=== PATIENT | male | born 1960 | race Native Hawaiian/Other Pacific Islander ===

== ENCOUNTER 2018-09-13 15:37 | Inpatient (IN) | payer OTHER ==
--- NOTE | 2018-09-13 16:26 | Emergency Department Report ---
ED Neuro Deficit HPI - General Chief Complaint: Dizziness Stated Complaint: FACIAL TINGLING Time Seen by Provider: 09/13/18 16:12 Source: patient, EMS Mode of arrival: Stretcher Limitations: No Limitations - History of Present Illness Initial Comments: 58-year-old male with no significant past medical history presents also complaining of left side paresthesia since about 10:00 AM. Symptoms are intermittent symptoms and include the left face, left arm, and left leg. Patient thinks he might have been on the left side but denies any current weakness. He also denies blurred vision, dysarthria, headache, chest pain, shortness of breath. Patient denies smoking, drug use, and drinks alcohol socially. He denies having any medical problems has not seen a physician in several years - Related Data Home Medications: Home Medications Medication Instructions Recorded Confirmed Last Taken No Known Home Medications [No 09/13/18 09/13/18 Unknown Reported Home Medications] Allergies/Adverse Reactions: Allergies Allergy/AdvReac Type Severity Reaction Status Date / Time No Known Allergies Allergy Unverified 09/13/18 16:19 ED Review of Systems ROS: Stated complaint: FACIAL TINGLING Other details as noted in HPI Comment: All other systems reviewed and negative ED Past Medical Hx - Past Medical History Previous Medical History?: No - Surgical History Past Surgical History?: No - Social History Smoking Status: Never Smoker Substance Use Type: Alcohol - Medications Home Medications: Home Medications Medication Instructions Recorded Confirmed Last Taken Type No Known Home Medications [No 09/13/18 09/13/18 Unknown History Reported Home Medications] ED Neuro Physical Exam - General Limitations: No Limitations Suspected Stroke: Yes - NIHSS Assessment Interval: Baseline 1a. Level of Consciousness: alert/keenly responsive 1b. LOC Questions: answers both correctly 1c. LOC Commands: performs tasks correctly 2. Best Gaze: normal 3. Visual: no visual loss 4. Facial Palsy: minor paralysis (left face) 5b. Motor Arm Right: no drift 5a. Motor Arm Left: no drift 6a. Motor Leg Left: no drift 6b. Motor Leg Right: no drift 7. Limb Ataxia: absent 8. Sensory: normal 9. Best Language: no aphasia 10. Dysarthria: normal 11. Extinction/Inattention: no abnormality Total Score: 1 Stroke Severity: Minor Stroke - Other Other exam information: General: No limitations, patient is alert in no acute distress Head exam: Atraumatic, normocephalic Eyes exam: Normal appearance, pupils equal reactive to light, extraocular movements intact ENT: Moist mucous membrane Neck exam: Normal inspection, full range of motion, no meningismus nontender Respiratory exam: Clear to auscultation bilateral, no wheezes, rales, crackles Cardiovascular: Normal rate and rhythm, normal heart sounds Abdomen: Soft, nondistended, and nontender, with normal bowel sounds, no rebound, or guarding Extremity: Full range of motion normal inspection no deformity Back: Normal Inspection, full range of motion, no tenderness Neurologic: Alert, oriented x3, cranial nerves intact, no motor or sensory d eficit Psychiatric: normal affect, normal mood Skin: Warm, dry, intact ED Course Vital Signs 09/13/18 09/13/18 09/13/18 15:41 15:46 16:00 Temperature Pulse Rate 103 H 98 H Respiratory 18 12 Rate Blood Pressure 149/84 140/79 Blood Pressure [Right] O2 Sat by Pulse 97 99 97 Oximetry 09/13/18 09/13/18 09/13/18 16:12 16:16 16:30 Temperature 98.3 F Pulse Rate 101 H 93 H Respiratory 16 17 Rate Blood Pressure 149/84 140/79 140/79 Blood Pressure [Right] O2 Sat by Pulse 98 97 96 Oximetry 09/13/18 09/13/18 16:41 20:11 Temperature 98.2 F 98 F Pulse Rate 93 H 84 Respiratory 18 16 Rate Blood Pressure Blood Pressure 140/79 149/88 [Right] O2 Sat by Pulse 100 100 Oximetry - Reevaluation(s) Reevaluation #1: 09/13/18 18:40 symptoms improved at this time - Consultations Consultation #1: 09/13/18 18:40 case d/w Neuro Dr Laar, rec admission for stroke workup - Lab Data Result diagrams: 09/13/18 16:27 09/13/18 16:27 Lab Results 09/13/18 09/13/18 09/13/18 Range/Units 15:56 16:27 16:27 WBC 5.0 (4.5-11.0) K/mm3 RBC 4.60 (3.65-5.03) M/mm3 Hgb 14.7 (11.8-15.2) gm/dl Hct 43.0 (35.5-45.6) % MCV 93 (84-94) fl MCH 32 (28-32) pg MCHC 34 (32-34) % RDW 13.7 (13.2-15.2) % Plt Count 152 (140-440) K/mm3 Lymph % (Auto) 42.8 H (13.4-35.0) % [place] % (Auto) 8.6 H (0.0-7.3) % Eos % (Auto) 2.2 (0.0-4.3) % Baso % (Auto) 0.7 (0.0-1.8) % Lymph # 2.1 (1.2-5.4) K/mm3 [place] # 0.4 (0.0-0.8) K/mm3 Eos # 0.1 (0.0-0.4) K/mm3 Baso # 0.0 (0.0-0.1) K/mm3 Seg Neutrophils % 45.7 (40.0-70.0) % Seg Neutrophils # 2.3 (1.8-7.7) K/mm3 PT 14.2 (12.2-14.9) Sec. INR 1.04 (0.87-1.13) APTT < 20.0 L (24.2-36.6) Sec. Thrombin Time 16.7 (15.1-19.6) Sec. Sodium (137-145) mmol/L Potassium (3.6-5.0) mmol/L Chloride (98-107) mmol/L Carbon Dioxide (22-30) mmol/L Anion Gap mmol/L BUN (9-20) mg/dL Creatinine (0.8-1.5) mg/dL Estimated GFR ml/min BUN/Creatinine Ratio % Glucose (75-100) mg/dL POC Glucose 135 H (70-105) Calcium (8.4-10.2) mg/dL Magnesium (1.7-2.3) mg/dL Total Creatine Kinase (55-170) units/L CK-MB (CK-2) (0.0-4.0) ng/mL CK-MB (CK-2) Rel Index (0-4) Troponin T (0.00-0.029) ng/mL 09/13/18 Range/Units 16:27 WBC (4.5-11.0) K/mm3 RBC (3.65-5.03) M/mm3 Hgb (11.8-15.2) gm/dl Hct (35.5-45.6) % MCV (84-94) fl MCH (28-32) pg MCHC (32-34) % RDW (13.2-15.2) % Plt Count (140-440) K/mm3 Lymph % (Auto) (13.4-35.0) % [place] % (Auto) (0.0-7.3) % Eos % (Auto) (0.0-4.3) % Baso % (Auto) (0.0-1.8) % Lymph # (1.2-5.4) K/mm3 [place] # (0.0-0.8) K/mm3 Eos # (0.0-0.4) K/mm3 Baso # (0.0-0.1) K/mm3 Seg Neutrophils % (40.0-70.0) % Seg Neutrophils # (1.8-7.7) K/mm3 PT (12.2-14.9) Sec. INR (0.87-1.13) APTT (24.2-36.6) Sec. Thrombin Time (15.1-19.6) Sec. Sodium 138 (137-145) mmol/L Potassium 3.8 (3.6-5.0) mmol/L Chloride 100.7 (98-107) mmol/L Carbon Dioxide 25 (22-30) mmol/L Anion Gap 16 mmol/L BUN 12 (9-20) mg/dL Creatinine 1.0 (0.8-1.5) mg/dL Estimated GFR > 60 ml/min BUN/Creatinine Ratio 12 % Glucose 122 H (75-100) mg/dL POC Glucose (70-105) Calcium 9.1 (8.4-10.2) mg/dL Magnesium 2.10 (1.7-2.3) mg/dL Total Creatine Kinase 292 H (55-170) units/L CK-MB (CK-2) 1.9 (0.0-4.0) ng/mL CK-MB (CK-2) Rel Index 0.6 (0-4) Troponin T < 0.010 (0.00-0.029) ng/mL - EKG Data -: EKG Interpreted by Dc EKG shows normal: sinus rhythm, axis (qrs -36), QRS complexes (qrsd 81), ST-T waves (no semi/t inv, inf q waves possibleonld infarct) Rate: normal (86) - Radiology Data Radiology results: report reviewed PROCEDURE: CT head without contrast. TECHNIQUE: Computerized tomography of the head was performed without contrast material. CT DOSE LENGTH PRODUCT: 920.48 mGycm HISTORY: Stroke symptoms, left side paresthesias . COMPARISONS: None. FINDINGS: The ventricles are normal in size. The fletcher matter and white matter appear normal. There are no mass lesions. There is no intracranial hemorrhage. An MRI scan with diffusion weighted imaging is the best means of detecting an early stroke. The calvarium appears intact. The mastoid air cells and visualized paranasal sinuses are well aerated. IMPRESSION: Normal study. - Medical Decision Making intermittent left paresthesias ct head unremarkable asa provided Neuro consulted, admission rec for [facility] hospitalist Dr Haynes informed. - Differential Diagnosis TIA, CVA, paresthesias, electrolyte abnormality, brain lesion - Thrombolytic Inclusion/Exclusion Thrombolytic Exclusion Criteria: Symptom Onset > 3 Hours Critical Care Time: No Critical care attestation.: If time is entered above; I have spent that time in minutes in the direct care of this critically ill patient, excluding procedure time. ED Disposition Clinical Impression: Left leg paresthesias, Arm paresthesia, left, Facial paresthesia Disposition: OP ADMIT IP TO THIS HOSP Is pt being admited?: Yes Does the pt Need Aspirin: Yes Condition: Stable Time of Disposition: 18:43 (Dr Haynes/hosp)
[2018-09-13 16:48] LABS: Basophils % (Auto) 0.7 % (0.0-1.8); Eosinophils # (Auto) 0.1 K/mm3 (0.0-0.4); Eosinophils % (Auto) 2.2 % (0.0-4.3); Hemoglobin 14.7 gm/dl (11.8-15.2); Lymphocytes # (Auto) 2.1 K/mm3 (1.2-5.4); Lymphocytes % (Auto) 42.8 % (13.4-35.0); Mean Corpuscular HGB Conc 34 % (32-34); Mean Corpuscular Volume 93 fl (84-94); Monocytes # (Auto) 0.4 K/mm3 (0.0-0.8); Monocytes % (Auto) 8.6 % (0.0-7.3); Red Cell Distribution Width 13.7 % (13.2-15.2)
[2018-09-13 16:54] LABS: Platelet Count 152 K/mm3 (140-440)
[2018-09-13 17:00] LABS: INR 1.04 (0.87-1.13)
[2018-09-13 17:02] LABS: Creatine Kinase MB 1.9 ng/mL (0.0-4.0)
[2018-09-13 17:03] LABS: BUN/Creatinine Ratio 12; Blood Urea Nitrogen 12 mg/dL (9-20); Calcium 9.1 mg/dL (8.4-10.2); Hemolysis Index 23
[2018-09-13 17:05] LABS: Thrombin Time 16.7 Sec. (15.1-19.6)
[2018-09-13 17:08] LABS: Partial Thromboplastin Time < 20.0 Sec. (24.2-36.6)
--- NOTE | 2018-09-13 18:20 | Cat Scan Report ---
PROCEDURE: CT head without contrast. TECHNIQUE: Computerized tomography of the head was performed without contrast material. CT DOSE LENGTH PRODUCT: 920.48 mGycm HISTORY: Stroke symptoms, left side paresthesias . COMPARISONS: None. FINDINGS: The ventricles are normal in size. The fletcher matter and white matter appear normal. There are no mass lesions. There is no intracranial hemorrhage. An MRI scan with diffusion weighted imaging is the best means of detecting an early stroke. The calvarium appears intact. The mastoid air cells and visualiz ed paranasal sinuses are well aerated. IMPRESSION: Normal study. This document is electronically signed by Jono Thomson MD., September 13 2018 06:17:38 PM ET
[2018-09-13] MEDS ORDERED: ASPIRIN PO ONE (18:40)
[2018-09-13] MEDS ORDERED: ZOFRAN IV PRN (19:12)
[2018-09-13] MEDS ORDERED: PHENERGAN PR PRN (19:12)
[2018-09-13] MEDS ORDERED: MILK OF MAGNESIA PO PRN (19:12)
[2018-09-13] MEDS ORDERED: DULCOLAX PR PRN (19:12)
[2018-09-13] MEDS ORDERED: SODIUM CHLORIDE FLUSH SYRINGE 10 ML IV PRN (19:12)
[2018-09-13] MEDS ORDERED: TYLENOL PO PRN (19:12)
[2018-09-13] MEDS ORDERED: PROVENTIL IH PRN (19:12)
[2018-09-13] MEDS ORDERED: REGLAN PO PRN (19:12)
--- NOTE | 2018-09-13 19:12 | History and Physical Report ---
History of Present Illness Chief complaint: My face in weak History of present illness: 58 YO Male with Obesity presents to ED for evaluation. Pt states that he was in his usual state of health around bedtime at 2300hrs, but has experienced left facial numbless, and left Arm and leg weakness upon waking around 1000 hrs. Pt states that he was unable to hold a cup in his left hand, as well as walk without difficulty. EMS notified, and upon arrival the patient was found to be in distress with a neurologic deficit. A code stroke was called and the patient transported to [facility]. Pt seen and evaluated in ED and found to have symptoms consistent with CVA. Pt outside the therapeutic window for TPA at time of my exam. Pt denies fever, chills, CP, Palpitations, NVD, Trauma, BPBPR, unintentional weight loss, or night sweats. Pt admitted to telemetry, and initiated on CVA protocol. Neurology consulted in ED. Past History Past Medical History: other (Obesity) Past Surgical History: No surgical history, Other (reviewed) Social history: , lives with family Family history: no significant family history (reviewed) Medications and Allergies Allergies Allergy/AdvReac Type Severity Reaction Status Date / Time No Known Allergies Allergy Unverified 09/13/18 16:19 Home Medications Medication Instructions Recorded Confirmed Last Taken Type No Known Home Medications [No 09/13/18 09/13/18 Unknown History Reported Home Medications] Review of Systems Constitutional: no weight loss, no weight gain, no fever, no chills Ears, nose, mouth and throat: no ear pain, no ear discharge, no tinnitis, no decreased hearing, no nose pain, no nasal congestion Cardiovascular: no chest pain, no orthopnea, no palpitations, no rapid/irregular heart beat, no edema, no syncope Respiratory: no cough, no cough with sputum, no excessive sputum, no hemoptysis Gastrointestinal: no nausea, no vomiting, no diarrhea, no constipation, no change in bowel habits, no hematemesis Genitourinary Male: no hematuria, no flank pain, no discharge, no urinary freque ncy, no urinary hesitancy Rectal: no pain, no incontinence, no bleeding Musculoskeletal: no neck stiffness, no neck pain, no shooting arm pain, no arm numbness/tingling Integumentary: no rash, no pruritis, no redness, no sores, no wounds Neurological: transient paralysis, weakness, lack of coordination, change in speech, gait dysfunction, motor disturbance, no head injury, no vertigo, no headaches, no migraines Psychiatric: no anxiety, no memory loss, no change in sleep habits, no sleep disturbances, no insomnia Endocrine: no cold intolerance, no heat intolerance, no polyphagia, no excessive thirst, no polydipsia, no polyuria Hematologic/Lymphatic: no easy bruising, no easy bleeding, no lymphadenopathy, no lymphedema Allergic/Immunologic: no urticaria, no allergic rhinitis, no wheezing, no persistent infections, no anaphylaxis Exam - Constitutional Vitals: Temp Pulse Resp BP Pulse Ox 98.2 F 93 H 18 140/79 100 09/13/18 16:41 09/13/18 16:41 09/13/18 16:41 09/13/18 16:41 09/13/18 16:41 General appearance: Present: mild distress - EENT Eyes: Present: PERRL ENT: hearing intact, clear oral mucosa - Neck Neck: Present: supple, normal ROM - Respiratory Respiratory effort: normal Respiratory: bilateral: CTA - Cardiovascular Heart Sounds: Present: S1 & S2. Absent: rub, click - Extremities Extremities: pulses symmetrical, No edema Peripheral Pulses: within normal limits - Abdominal General gastrointestinal: Present: soft, non-tender, non-distended, normal bowel sounds Male genitourinary: Present: normal - Integumentary Integumentary: Present: clear, warm, dry - Musculoskeletal Musculoskeletal: left sided weakness - Psychiatric Psychiatric: appropriate mood/affect, intact judgment & insight, memory intact - Neurologic Neurologic: CNII-XII intact, moves all extremities, no gait normal Results - Labs CBC & Chem 7: 09/13/18 16:27 09/13/18 16:27 Labs: Abnormal lab results 09/13/18 09/13/18 09/13/18 Range/Units 15:56 16:27 16:27 Lymph % (Auto) 42.8 H (13.4-35.0) % [place] % (Auto) 8.6 H (0.0-7.3) % APTT < 20.0 L (24.2-36.6) Sec. Glucose (75-100) mg/dL POC Glucose 135 H (70-105) Total Creatine Kinase (55-170) units/L 09/13/18 Range/Units 16:27 Lymph % (Auto) (13.4-35.0) % [place] % (Auto) (0.0-7.3) % APTT (24.2-36.6) Sec. Glucose 122 H (75-100) mg/dL POC Glucose (70-105) Total Creatine Kinase 292 H (55-170) units/L Assessment and Plan - Patient Problems (1) CVA (cerebral vascular accident) Current Visit: Yes Status: Acute Qualifiers: Precerebral and cerebral artery: middle cerebral artery Laterality of affected vessel: right Plan to address problem: Stroke Protocol: CT Head, MRI Brain, MRA Brain, Echo, Carotid Doppler, PT/OT/Speech Therapy, Neuro Checks, Lipid panel, Statin therapy, Bedside swallow evaluation, antiplatelet therapy. (2) Left hemiparesis Current Visit: Yes Status: Acute Plan to address problem: PT consulted, (3) Obesity (BMI 30.0-34.9) Current Visit: Yes Status: Acute Plan to address problem: Balanced diet, incerased physical activity at discharge. (4) DVT prophylaxis Current Visit: Yes Status: Acute Plan to address problem: SCD to BLE while in bed.
[2018-09-13] MEDS ORDERED: ATARAX PO PRN (19:14)
[2018-09-13] MEDS ORDERED: TYLENOL ONE (20:23)
--- NOTE | 2018-09-14 07:55 | Progress Note ---
Assessment and Plan - CVA (cerebral vascular accident) Current Visit: Yes Status: Acute Qualifiers: Precerebral and cerebral artery: middle cerebral artery Laterality of affected vessel: right Plan to address problem: F/u report of MRI Brain, MRA Brain, Echo, Carotid Doppler, PT/OT/Speech Therapy, Neuro Checks, Lipid panel, Statin therapy, Bedside swallow evaluation, antiplatelet therapy. - Left hemiparesis Current Visit: Yes Status: Acute Plan to address problem: PT consulted, - left facial palsy Commence prednisone and acyclovir - Obesity (BMI 30.0-34.9) Current Visit: Yes Status: Acute Plan to address problem: Balanced diet, incerased physical activity at discharge. - DVT prophylaxis Current Visit: Yes Status: Acute Plan to address problem: SCD to BLE while in bed. Subjective Date of service: 09/14/18 Principal diagnosis: acute CVA with left hemiparesis Interval history: Patient lying quietly in bed in no distress. Denies any headache chest pain or shortness of breath Objective - Exam Narrative Exam: Constitutional: Well-nourished well-developed. In no distress Head: Normocephalic atraumatic Eyes: Pupils are equal round and reactive to light Nose: No enlarged turbinates, no septal deviation. Mouth: Moist mucous membranes. Neck: Supple no thyromegaly. No bruit. No JVD Heart: Regular rate and rhythm, S1-S2 normal. No rubs murmurs or gallop Lungs: Clear to auscultation bilaterally. no rales or rhonchi Abdomen: Soft, nontender. Bowel sound are present. Extremities: No edema, no cyanosis, no clubbing. Neuro: Left hemiparesis Alert oriented Oriented x2. Skin: No rashes or hyperpigmented spots Musculoskeletal system: No joint pain or swelling Hematological: No petechia or subcutanous hemorrhages. Immunological: No multiple septic spots on the skin Lymphatic: No generalized lymphadenopathy Psychiatry: Euthymic. Calm. - Constitutional Vitals: Vital Signs - 12hr 09/13/18 09/13/18 09/13/18 20:00 20:10 20:11 Temperature 98 F Pulse Rate 81 83 84 Pulse Rate [ From Monitor] Pulse Rate [ Left Radial] Respiratory 15 13 16 Rate Blood Pressure 149/88 149/88 Blood Pressure 149/88 [Right] O2 Sat by Pulse 100 100 100 Oximetry 09/13/18 09/13/18 09/13/18 20:20 20:23 20:31 Temperature Pulse Rate 96 H Pulse Rate [ From Monitor] Pulse Rate [ Left Radial] Respiratory 21 16 Rate Blood Pressure 149/88 149/88 Blood Pressure [Right] O2 Sat by Pulse 99 86 Oximetry 09/13/18 09/13/18 09/13/18 20:47 21:00 22:00 Temperature 98.0 F Pulse Rate 82 Pulse Rate [ 89 From Monitor] Pulse Rate [ 90 Left Radial] Respiratory 17 Rate Blood Pressure 155/81 Blood Pressure [Right] O2 Sat by Pulse 100 Oximetry 09/13/18 09/14/18 09/14/18 23:19 00:00 04:49 Temperature 98.1 F 98.4 F Pulse Rate 82 94 H Pulse Rate [ From Monitor] Pulse Rate [ Left Radial] Respiratory 16 16 Rate Blood Pressure 157/92 Blood Pressure 146/84 [Right] O2 Sat by Pulse 96 99 99 Oximetry 09/14/18 05:00 Temperature Pulse Rate 76 Pulse Rate [ From Monitor] Pulse Rate [ Left Radial] Respiratory Rate Blood Pressure Blood Pressure [Right] O2 Sat by Pulse Oximetry - Labs CBC & Chem 7: 09/13/18 16:27 09/13/18 16:27 Labs: Abnormal lab results 09/13/18 09/13/18 09/13/18 Range/Units 15:56 16:27 16:27 Lymph % (Auto) 42.8 H (13.4-35.0) % [place] % (Auto) 8.6 H (0.0-7.3) % APTT < 20.0 L (24.2-36.6) Sec. Glucose (75-100) mg/dL POC Glucose 135 H (70-105) Total Creatine Kinase (55-170) units/L 09/13/18 Range/Units 16:27 Lymph % (Auto) (13.4-35.0) % [place] % (Auto) (0.0-7.3) % APTT (24.2-36.6) Sec. Glucose 122 H (75-100) mg/dL POC Glucose (70-105) Total Creatine Kinase 292 H (55-170) units/L
[2018-09-14] MEDS ORDERED: DELTASONE PO SCH (10:00)
[2018-09-14] MEDS: DELTASONE PO SCH (11:27)
[2018-09-14] MEDS: ASPIRIN PO SCH (11:27)
[2018-09-14] MEDS: ZOVIRAX PO SCH ×3 (11:40→22:49)
--- NOTE | 2018-09-14 13:16 | Vascular Lab Report ---
PROCEDURE: VL CAROTID DUPLEX BILAT TECHNIQUE: Carotid duplex Doppler ultrasound. Grayscale, color flow and spectral waveform images wer e obtained. HISTORY: stroke COMPARISON: None FINDINGS: There is moderate degree of atherosclerotic plaque within the carotid bulbs bilaterally. There is no abnormal elevation in flow velocity seen to indicate a stenosis of hemodynamic significance. ICA/CCA velocity ratios are normal, 0.16 on the right and 0.65 on the left. These findings suggest stenoses o f less than 50%. Vertebral artery flow is antegrade bilaterally. There appeared to be 2 separate ICA lumens proximally. This could indicate a carotid dissection altho ugh an intimal flap is not clearly visualized. Both lumens have similar velocities. IMPRESSION: 2 separate right ICA lumens identified with similar velocities. Although an intimal flap not clearly visualized, this could be a carotid dissection. Recommend CTA or MRA of the neck. No evidence of any hemodynamically significant stenosis. This document is electronically signed by Belen Hinton MD., September 14 2018 01:13:50 PM ET
--- NOTE | 2018-09-14 14:15 | Magnetic Resonance Report ---
MRI OF THE BRAIN WITHOUT CONTRAST: HISTORY: Stroke PROCEDURE: Multiplanar, multisequence MR imaging of the brain without IV contrast was performed. FINDINGS: There are scattered foci of increased T2 signal in the periventricular and subcortical white matter bilaterally. This is a nonspecific finding but is most likely related to chronic microvascular ischemic disease. No evidence for acute ischemia, hemorrhage or mass. No chronic infarct or extra-axial fluid collection. The midline structures are central. The basal cisterns are patent. Normal ventricular size. The orbital cavities and sella turcica demonstrate no abnormality. The visualized paranasal sinuses and mastoid air cells are well aerated. IMPRESSION: Chronic white matter changes. No acute intracranial process is identified.
--- NOTE | 2018-09-14 14:39 | Magnetic Resonance Report ---
MRA HEAD WITHOUT CONTRAST HISTORY: Stroke. [id number] imaging with MIP reformations of the [place] of [place] is submitted. The arteries appear widely patent and free of hemodynamically significant stenosis, aneurysm or dissection. IMPRESSION: Unremarkable MRA head.
--- NOTE | 2018-09-14 15:33 | Consultation ---
History of Present Illness Consult date: 09/14/18 Requesting physician: ELSY ALFONSO Reason for Consult: left numbness, facial weakness. History of present illness: 58 meme old male with no prior medical history, on no medications, presented to ER with symptoms of numbness of left arm, leg and face. He admits left ear pain for the past several days. The numbness began abruptly on 09/13/18. It has not changed. He has also noted that it is difficulty to close the left eye.and he has facial droop. He denies headache, slurred speech, trouble swallowing difficulty with hearing, dizziness or vertigo, He denies weakness. Denies any recent infectious illness. Past History Past Medical History: other (Obesity) Past Surgical History: No surgical history, Other (reviewed) Social history: , lives with family. denies: smoking, alcohol abuse Family history: no significant family history (reviewed) Medications and Allergies Allergies Allergy/AdvReac Type Severity Reaction Status Date / Time No Known Allergies Allergy Unverified 09/13/18 16:19 Home Medications Medication Instructions Recorded Confirmed Last Taken Type No Known Home Medications [No 09/13/18 09/13/18 Unknown History Reported Home Medications] Active Meds: Active Medications Acetaminophen (Tylenol) 650 mg PO Q4H PRN PRN Reason: Pain, Mild (1-3) Last Admin: 09/13/18 20:23 Dose: 650 mg Documented by: Acyclovir (Zovirax) 400 mg PO Q8HR [facility] Last Admin: 09/14/18 15:12 Dose: 400 mg Documented by: Albuterol (Proventil) 2.5 mg IH Q3HRT PRN PRN Reason: Shortness Of Breath Aspirin (Aspirin) 325 mg PO QDAY [facility] Last Admin: 09/14/18 11:27 Dose: 325 mg Documented by: Atorvastatin Calcium (Lipitor) 40 mg PO QHS [facility] Last Admin: 09/13/18 22:45 Dose: 40 mg Documented by: Bisacodyl (Dulcolax) 10 mg [place] QDAY PRN PRN Reason: Constipation Hydroxyzine HCl (Atarax) 25 mg PO Q6HR PRN PRN Reason: Itching Last Admin: 09/13/18 22:46 Dose: 25 mg Documented by: Heparin Sodium/Sodium Chloride (Heparin/ 0.45% Nacl-25,000 Unit/500 Ml) 25,000 unit in 500 mls @ 29 mls/hr IV TITR RADHA; Protocol Magnesium Hydroxide (Milk Of Magnesia) 30 ml PO Q4H PRN PRN Reason: Constipation Metoclopramide HCl (Reglan) 10 mg PO Q6H PRN PRN Reason: Nausea And Vomiting Ondansetron HCl (Zofran) 4 mg IV Q8H PRN PRN Reason: Nausea And Vomiting Prednisone (Deltasone) 40 mg PO QDAY [facility] Last Admin: 09/14/18 11:27 Dose: 40 mg Documented by: Promethazine HCl (Phenergan) 25 mg [place] Q6H PRN PRN Reason: Nausea And Vomiting Sodium Chloride (Sodium Chloride Flush Syringe 10 Ml) 10 ml IV PRN PRN PRN Reason: LINE FLUSH Review of Systems Ears, nose, mouth and throat: ear pain, no ear discharge, no tinnitis, no decreased hearing, no dental pain, no mouth pain, no dysphagia, no headache, no vertigo Cardiovascular: no chest pain, no palpitations Respiratory: no cough, no cough with sputum, no congestion Gastrointestinal: no nausea, no vomiting, no diarrhea, no constipation, no change in bowel habits Genitourinary Male: no dysuria, no urinary frequency Musculoskeletal: arm numbness/tingling, leg numbness/tingling Integumentary: no rash, no pruritis Neurological: parathesias, numbness, tingling, sensory deficit, no vertigo, no headaches Physical Examination - Vital Signs Vital Signs: Vital Signs Pulse Ox 97 09/13/18 15:41 - Physical Exam Narrative exam: General - sitting on side of bed, in no distress. Neurological exam - Speech - fluent, relates history well. CN's - EOMs full, no nystagmus. Face with weakness of orbicularis occuli, lower facial muscles on left. V-1 to V-3 with decreased touch and pin on left. Tongue midline, hearing intact. Motor - 5/5 bilaterally upper and lower extremities. Reflexes - +2 on left, +1 on right. Sensory - decreased touch and sharp sensation left arm and leg. Coordination - intact FTN. FFM, anf Austyn. Gait - normal able to raise up on heels and toes. - Assessment Assessment Interval: Baseline - Level of Consciousness 1a. Level of Consciousness: alert/keenly responsive - LOC Questions 1b. LOC Questions: answers both correctly - LOC Command 1c. LOC Commands: performs tasks correctly - Best Gaze 2. Best Gaze: normal - Visual 3. Visual: no visual loss - Facial Palsy 4. Facial Palsy: minor paralysis (left face) - Motor Arm 5a. Motor Arm Left: no drift 5b. Motor Arm Right: no drift - Motor Leg 6a. Motor Leg Left: no drift 6b. Motor Leg Right: no drift - Limb Ataxia 7. Limb Ataxia: absent - Sensory 8. Sensory: mild/moderate sensory loss - Best Language 9. Best Language: no aphasia - Dysarthria 10. Dysarthria: normal - Extinction and Inattention 11. Extinction/Inattention: no abnormality - Scoring Total Score: 2 Stroke Severity: Minor Stroke Results - Laboratory Findings CBC and BMP: 09/13/18 16:27 09/13/18 16:27 Abnormal Lab Findings: Abnormal Labs 09/13/18 09/13/18 09/13/18 15:56 16:27 16:27 Lymph % (Auto) 42.8 H Fleming % (Auto) 8.6 H APTT < 20.0 L Glucose POC Glucose 135 H Total Creatine Kinase 09/13/18 16:27 Lymph % (Auto) Fleming % (Auto) APTT Glucose 122 H POC Glucose Total Creatine Kinase 292 H Assessment and Plan 58 year old male with lower motor neuron facial palsy, ear pain, left sided numbness. MRI brain does not reveal a stroke. The carotid dopplers, however, reveal a possible dissection. CTA head and neeck ordered This may very likely be a [place] Palsy, but will rule out cerebrovascular disease because of the added neurological findings. Plan - CT angio head and neck.
[2018-09-14] MEDS ORDERED: HEPARIN/ 0.45% NACL-25,000 UNIT/500 ML 25,000 UNIT/500 ML BAG IV SCH (16:00)
[2018-09-14 16:02] LABS: Hematocrit 47.1 % (35.5-45.6); Hemoglobin 16.1 gm/dl (11.8-15.2)
[2018-09-14 16:22] LABS: INR 1.02 (0.87-1.13)
[2018-09-14 16:23] LABS: Partial Thromboplastin Time 27.9 Sec. (24.2-36.6)
[2018-09-14 16:25] LABS: Chol/HDL Ratio 6.75 %
[2018-09-14] MEDS ORDERED: ATIVAN IV PRN (16:48)
[2018-09-14] MEDS: APRESOLINE IV SCH (17:40)
--- NOTE | 2018-09-14 18:53 | Cat Scan Report ---
PROCEDURE: CT ANGIO NECK HISTORY: Right carotid dissection with L sided weakness FINDINGS: Contrast-enhanced CT angiography of the neck was performed following the intravenous admini stration of iodinated contrast. Sagittal and coronal three-dimensional reformatted images were genera negro. The pulmonary apices appear clear. The common carotid artery is widely patent. There is plaque in the right carotid bulb resulting in an estimated 30% short segment stenosis, sagittal image 90. The external carotid artery is patent. The right vertebral artery is a small vessel, but appears patent throughout its course. The basilar arter y arises solely from the left vertebral artery. On the left, the common carotid, internal carotid, external carotid and vertebral arteries appear wid jace patent. No vessel dissection is seen. IMPRESSION: No stenosis of greater than 50% is seen in the cervical arterial vasculature The right vertebral artery is small. The basilar artery arises from the left vertebral artery No vessel dissection is seen This document is electronically signed by Leonardo Pereira MD., September 14 2018 06:51:10 PM ET
--- NOTE | 2018-09-14 21:04 | Cat Scan Report ---
PROCEDURE: CT ANGIO HEAD TECHNIQUE: The HISTORY: dopplers suggestive of carotid dissection COMPARISONS: PROCEDURE: CT ANGIO HEAD TECHNIQUE: Computerized tomographic angiography of the head was performed after the IV injection of iodinated nonionic contrast including image processing. The image data was postprocessed using 2-dim ensional multiplanar reformatted (MPR) and 3-dimensional (MIP and/or volume rendered) techniques. CT DOSE LENGTH PRODUCT: mGycm HISTORY: dopplers suggestive of carotid dissection COMPARISONS: None . FINDINGS: Intracranial vessels: Carotid siphon: Normal . Anterior cerebral: Normal . Middle cerebral: Normal . Posterior cerebral: Normal . Vertebral arteries including basilar: Normal . Aneurysms: None . Dural sinuses: Normal. IMPRESSION: Normal Examination . This document is electronically signed by Will Snell MD., September 14 2018 09:02:02 PM ET
--- NOTE | 2018-09-14 22:28 | Consultation ---
History of Present Illness - Reason for Consult Consult date: 09/14/18 Eval for possible carotid dissection Requesting physician: ELSY ALFONSO - History of Present Illness This pt is a 58 yo male that was admitted via the ER due to an acute onset of left sided numbness on 09/13/18. Stroke w/u was initiated. This included a carotid duplex that was reported as 2 JESSICA lumens suggestive of a carotid dissection. A vascular surgery consult was requested to further evaluate. A CT angiogram was ordered. Neurology has been consulted. Pt states the left sided numbness resolved following presenting to the ER, but returned after his CT angiogram. This to subsequently began to improve by the time of our initial evaluation. Past History Past Medical History: No medical history (none listed), other (Obesity) Past Surgical History: No surgical history (denies previous surgery) Social history: , lives with family. denies: smoking, alcohol abuse Family history: no significant family history Medications and Allergies Allergies Allergy/AdvReac Type Severity Reaction Status Date / Time No Known Allergies Allergy Unverified 09/13/18 16:19 Home Medications Medication Instructions Recorded Confirmed Last Taken Type Acyclovir [Zovirax Cap] 400 mg PO Q8HR #30 capsule 09/15/18 Unknown Rx Aspirin [Aspirin TAB] 325 mg PO QDAY #30 tablet 09/15/18 Unknown Rx AtorvaSTATin [Lipitor] 40 mg PO QHS #30 tablet 09/15/18 Unknown Rx predniSONE [Deltasone] 40 mg PO QDAY #5 tablet 09/15/18 Unknown Rx Active Meds: Active Medications Acetaminophen (Tylenol) 650 mg PO Q4H PRN PRN Reason: Pain, Mild (1-3) Last Admin: 09/13/18 20:23 Dose: 650 mg Documented by: Acyclovir (Zovirax) 400 mg PO Q8HR [facility] Last Admin: 09/14/18 15:12 Dose: 400 mg Documented by: Albuterol (Proventil) 2.5 mg IH Q3HRT PRN PRN Reason: Shortness Of Breath Aspirin (Aspirin) 325 mg PO QDAY [facility] Last Admin: 09/14/18 11:27 Dose: 325 mg Documented by: Atorvastatin Calcium (Lipitor) 40 mg PO QHS [facility] Last Admin: 09/13/18 22:45 Dose: 40 mg Documented by: Bisacodyl (Dulcolax) 10 mg [place] QDAY PRN PRN Reason: Constipation Hydralazine HCl (Apresoline) 10 mg IV Q6HR [facility] Last Admin: 09/14/18 17:40 Dose: 10 mg Documented by: Hydroxyzine HCl (Atarax) 25 mg PO Q6HR PRN PRN Reason: Itching Last Admin: 09/13/18 22:46 Dose: 25 mg Documented by: Heparin Sodium/Sodium Chloride (Heparin/ 0.45% Nacl-25,000 Unit/500 Ml) 25,000 unit in 500 mls @ 29 mls/hr IV TITR RADHA; Protocol Last Admin: 09/14/18 16:33 Dose: 1,450 units/hr, 29 mls/hr Documented by: Lorazepam (Ativan) 1 mg IV Q4H PRN PRN Reason: Agitation Last Admin: 09/14/18 17:40 Dose: 1 mg Documented by: Magnesium Hydroxide (Milk Of Magnesia) 30 ml PO Q4H PRN PRN Reason: Constipation Metoclopramide HCl (Reglan) 10 mg PO Q6H PRN PRN Reason: Nausea And Vomiting Ondansetron HCl (Zofran) 4 mg IV Q8H PRN PRN Reason: Nausea And Vomiting Prednisone (Deltasone) 40 mg PO QDAY [facility] Last Admin: 09/14/18 11:27 Dose: 40 mg Documented by: Promethazine HCl (Phenergan) 25 mg [place] Q6H PRN PRN Reason: Nausea And Vomiting Sodium Chloride (Sodium Chloride Flush Syringe 10 Ml) 10 ml IV PRN PRN PRN Reason: LINE FLUSH Review of Systems All systems: negative Exam - Constitutional Vitals: Temp Pulse Resp BP Pulse Ox 98.0 F 88 18 139/88 100 09/14/18 20:08 09/14/18 21:21 09/14/18 20:08 09/14/18 20:08 09/14/18 21:21 General appearance: Present: no acute distress - EENT Eyes: Present: EOM intact ENT: hearing intact - Neck Neck: Present: supple - Respiratory Respiratory effort: normal - Extremities Extremities: no ischemia, normal temperature - Psychiatric Psychiatric: appropriate mood/affect, intact judgment & insight, cooperative - Neurologic Neurologic: other (c/o numbness to his left face and arm, though this is improving.) Results - Labs CBC & Chem 7: 09/14/18 15:42 09/13/18 16:27 Labs: Abnormal lab results 09/14/18 09/14/18 Range/Units 15:42 15:42 Hgb 16.1 H (11.8-15.2) gm/dl Hct 47.1 H (35.5-45.6) % Triglycerides 211 H (2-149) mg/dL Cholesterol 270 H (50-199) mg/dL LDL Cholesterol Direct 199 H (50-130) mg/dL Assessment and Plan Pt admitted via the [facility] ER due to an acute onset of Left sided numbness. Stroke w/u initiated. Neurology following. Carotid duplex was reported as possible Right Internal carotid artery dissection. A vascular surgery consult was requested. A Heparin drip was started. CT angiogram ordered to further evaluate. CTA images reviewed and no evidence of right carotid dissection appreciated. Await official report. - Patient Problems (1) Paresthesias/numbness Current Visit: Yes Status: Acute
[2018-09-15 05:23] VITALS: BP 122/78
[2018-09-15] MEDS: ZOVIRAX PO SCH ×2 (06:30→13:14)
[2018-09-15] MEDS ORDERED: APRESOLINE IV PRN (06:38)
[2018-09-15] MEDS: APRESOLINE IV SCH ×2 (06:41→06:53)
--- NOTE | 2018-09-15 08:33 | Event Note ---
Date: 09/15/18 CTA of neck shows no carotid dissection and no hemodynamically significant stenosis. Heparin to be DCd as it is not necessary. Continue ASA. CTA chest not officially read yet but does not show significant pathology.
--- NOTE | 2018-09-15 12:10 | Discharge Summary ---
Providers - Providers Date of Admission: 09/13/18 19:12 Attending physician: KRISTA ROMEO MD 09/13/18 Consult to Physician [CONS] Routine Comment: Consulting Provider: ESTELA CONTE Physician Instructions: Reason For Exam: cva 09/13/18 19:12 Occupational Therapy Evaluate and Treat [CONS] Routine Comment: Reason For Exam: Neuro deficits Physical Therapy Evaluation and Treat [CONS] Routine Comment: Reason For Exam: Neuro deficits 09/13/18 19:13 Speech Therapy Evaluation and Treat [CONS] Routine Reason For Exam: swallow eval 09/14/18 14:28 Consult to Physician [CONS] Urgent Comment: Radiologist recommends MRA neck/CTA neck Consulting Provider: PAULETTE NAM Physician Instructions: Reason For Exam: possible RIGHT CAROTID DISSECTION [facility] Reason for admission: moise's palsy Condition: Stable Pertinent studies: MRI head normal Carotid doppler suspected for dissection CTA neck; no dissection Hospital course: 58 meme old male with no prior medical history, on no medications, presented to ER with symptoms of numbness of left arm, leg and face. He admits left ear pain for the past several days. The numbness began abruptly on 09/13/18. It has not changed. He has also noted that it is difficulty to close the left eye.and he has facial droop. He denies headache, slurred speech, trouble swallowing difficulty with hearing, dizziness or vertigo, He denies weakness. Denies any recent infectious illness. 58 year old male with lower motor neuron facial palsy, ear pain, left sided numbness. MRI brain does not reveal a stroke. The carotid dopplers, however, reveal a possible dissection. CTA head and neck shows no dissection. Patient has [place] Palsy but no CVA identified. Patient discharged home with acyclovir and prednisolone. Disposition: DC-01 TO HOME OR SELFCARE Time spent for discharge: 32 minutes - Discharge Diagnoses (1) Facial palsy Status: Acute (2) Facial paresthesia Status: Acute (3) CVA (cerebral vascular accident) Status: Ruled-out Core Measure Documentation - Palliative Care Palliative Care/ Comfort Measures: Not Applicable - Core Measures Any of the following diagnoses?: none Exam - Constitutional Vitals: Temp Pulse Resp BP Pulse Ox 98.0 F 102 H 20 122/78 98 09/15/18 04:24 09/15/18 05:00 03/12/19 04:24 09/15/18 04:24 09/15/18 04:24 General appearance: Present: no acute distress, obese - EENT ENT: hearing intact, clear oral mucosa - Neck Neck: Present: supple, normal ROM - Respiratory Respiratory effort: normal Respiratory: bilateral: CTA - Cardiovascular Heart Sounds: Present: S1 & S2. Absent: rub, click - Extremities Extremities: pulses symmetrical, No edema Peripheral Pulses: within normal limits - Abdominal General gastrointestinal: Present: soft, non-tender, non-distended, normal bowel sounds Male genitourinary: Present: deferred - Integumentary Integumentary: Present: clear, warm, dry - Musculoskeletal Musculoskeletal: gait normal, strength equal bilaterally - Neurologic Neurologic: other (Left fascial palsy) - Allied Health Allied health notes reviewed: nursing, PT, case management Plan Activity: no restrictions Weight Bearing Status: Full Weight Bearing Diet: regular Follow up with: KELECHI WU MD [Primary Care Provider] - 7 Days Prescriptions: AtorvaSTATin [Lipitor] 40 mg PO QHS #30 tablet Aspirin [Aspirin TAB] 325 mg PO QDAY #30 tablet predniSONE [Deltasone] 40 mg PO QDAY #5 tablet Acyclovir [Zovirax Cap] 400 mg PO Q8HR #30 capsule
[2018-09-15] MEDS: ASPIRIN PO SCH (13:14)
[2018-09-15] MEDS: DELTASONE PO SCH (13:14)
--- NOTE | 2018-09-16 13:14 | Cat Scan Report ---
PROCEDURE: CT ANGIO CHEST TECHNIQUE: Computerized tomographic angiography of the chest was performed after the IV injection of iodinated nonionic contrast including image processing. Images are reconstructed in the sagittal and coronal plane HISTORY: Right carotid dissection with L sided weakness COMPARISONS: None FINDINGS: There is no evidence of PE. The pulmonary arteries opacify normally. The heart appears normal. The thoracic aorta is nonaneurysmal and there is no evidence of dissection. The lungs are clear. There is no evidence of pleural effusion. The bones are unremarkable. Images through the upper abdomen are unremarkable. IMPRESSION: Normal CT angiogram of the chest This document is electronically signed by Molly Humphries MD., September 14 2018 07:15:50 PM ET
== END 2018-09-15 16:45 | disposition home or self-care (01) | DRG 74 ==
LOC: ED 15:37 → 4A 19:12
PROVIDERS: ADMIT Internal Medicine; ATTEND Internal Medicine
DX: G51.0 Bell's palsy (principal); G81.94 Hemiplegia, unspecified affecting left nondominant side; E66.9 Obesity, unspecified; Z68.30 Body mass index [BMI] 30.0-30.9, adult
CPT/HCPCS: 36415; 70450; 70496; 70498; 70544; 70551; 71275; 80048; 80061; 82550; 82553; 82962; 83735; 84484; 85014; 85018; 85025; 85049; 85520; 85610; 85670; 85730; 93005; 93010; 93306; 93880; 94760; G0378; A9270-GY; J0360; J1644; J2060; J7512; Q9967

== ENCOUNTER 2018-09-16 17:13 | Emergency (ER) | payer OTHER ==
[2018-09-16 17:33] VITALS: BP 126/62
--- NOTE | 2018-09-16 17:41 | Emergency Department Report ---
ED General Adult HPI - General Chief complaint: Dizziness Stated complaint: L SIDED FACIAL WEAKNESS Time Seen by Provider: 09/16/18 17:32 Source: patient, EMS Mode of arrival: Stretcher Limitations: No Limitations - History of Present Illness Initial comments: Patient is 58 years old male with no significant past medical history. Patient discharged from the hospital yesterday for a stroke workup which was negative and patient diagnosed with left Subramanian palsy. Patient stated that he was doing fine and he came home from outside walking and all of a sudden he started having some dizziness. EMS found patient to have a blood pressure of 196/112. Patient denied any chest pain, shortness of breath, lower extremity swelling. He also denied any headache, weakness numbness or tingling sensation. Patient currently stated that his symptoms completely resolved after his blood pressure is normalized to 126/82. Patient denied any history of blood pressure but patient was prescribed prednisone for his Subramanian's palsy yesterday. Severity scale (0 -10): 0 - Related Data Previous Rx's Medication Instructions Recorded Last Taken Type Acyclovir [Zovirax Cap] 400 mg PO Q8HR #30 capsule 09/15/18 Unknown Rx Aspirin [Aspirin TAB] 325 mg PO QDAY #30 tablet 09/15/18 Unknown Rx AtorvaSTATin [Lipitor] 40 mg PO QHS #30 tablet 09/15/18 Unknown Rx predniSONE [Deltasone] 40 mg PO QDAY #5 tablet 09/15/18 Unknown Rx Allergies Allergy/AdvReac Type Severity Reaction Status Date / Time No Known Allergies Allergy Unverified 09/13/18 16:19 ED Review of Systems ROS: Stated complaint: L SIDED FACIAL WEAKNESS Other details as noted in HPI Comment: All other systems reviewed and negative Constitutional: denies: chills, fever Respiratory: denies: cough, orthopnea, shortness of breath, SOB with exertion, SOB at rest Gastrointestinal: denies: abdominal pain, nausea, vomiting Musculoskeletal: denies: back pain Neurological: denies: headache, weakness, numbness, paresthesias, confusion ED Past Medical Hx - Past Medical History Hx Congestive Heart Failure: No Hx Diabetes: No Hx Asthma: No Hx COPD: No Additional medical history: [place] Palsy - Social History Smoking Status: Former Smoker Substance Use Type: None - Medications Home Medications: Home Medications Medication Instructions Recorded Confirmed Last Taken Type Acyclovir [Zovirax Cap] 400 mg PO Q8HR #30 capsule 09/15/18 Unknown Rx Aspirin [Aspirin TAB] 325 mg PO QDAY #30 tablet 09/15/18 Unknown Rx AtorvaSTATin [Lipitor] 40 mg PO QHS #30 tablet 09/15/18 Unknown Rx predniSONE [Deltasone] 40 mg PO QDAY #5 tablet 09/15/18 Unknown Rx ED Physical Exam - General Limitations: No Limitations General appearance: alert, in no apparent distress - Head Head exam: Present: atraumatic, normocephalic, normal inspection - Eye Eye exam: Present: normal appearance, PERRL - ENT ENT exam: Present: normal exam, normal orophraynx, mucous membranes moist - Neck Neck exam: Present: normal inspection, full ROM. Absent: tenderness, meningismus, lymphadenopathy, thyromegaly - Respiratory Respiratory exam: Present: normal lung sounds bilaterally - Cardiovascular Cardiovascular Exam: Present: regular rate, normal rhythm, normal heart sounds - GI/Abdominal GI/Abdominal exam: Present: soft, normal bowel sounds. Absent: distended, tenderness, guarding, rebound, rigid, mass, bruit, pulsatile mass - Extremities Exam Extremities exam: Present: normal inspection, full ROM, normal capillary refill. Absent: tenderness, pedal edema, joint swelling, calf tenderness - Back Exam Back exam: Present: normal inspection, full ROM. Absent: tenderness, CVA tenderness (R), CVA tenderness (L), muscle spasm, paraspinal tenderness, vertebral tenderness - Neurological Exam Neurological exam: Present: alert, oriented X3, CN II-XII intact, normal gait, reflexes normal - Skin Skin exam: Present: warm, intact, normal color ED Course Vital Signs 09/16/18 09/16/18 17:30 17:32 Temperature 97.9 F 97.9 F Pulse Rate 93 H 93 H Respiratory 16 16 Rate Blood Pressure 126/62 Blood Pressure 126/62 [Right] O2 Sat by Pulse 96 96 Oximetry ED Medical Decision Making - Lab Data Result diagrams: 09/16/18 17:43 09/16/18 17:43 - Medical Decision Making Patient is 58 years old male with no significant past medical history. Patient discharged from the hospital yesterday for a stroke workup which was negative and patient diagnosed with left Subramanian palsy. Patient stated that he was doing fine and he came home from outside walking and all of a sudden he started having some dizziness. EMS found patient to have a blood pressure of 196/112. Pat ient denied any chest pain, shortness of breath, lower extremity swelling. He also denied any headache, weakness numbness or tingling sensation. Patient currently stated that his symptoms completely resolved after his blood pressure is normalized to 126/82. Patient denied any history of blood pressure but patient was prescribed prednisone for his Subramanian's palsy yesterday. Patient remained asymptomatic in the emergency room. Labs reviewed and is unremarkable. D-dimer is negative. Patient stated that he is feeling much better and he wanted to go home. I believe his transient increase in his blood pressure is most likely due to prednisone. I will prescribe patient hydrochlorothiazide 25 mg and advised him to follow up with his primary care physician in the next 2-3 days. I also advised him to return to the ER if symptoms are not improved. Critical care attestation.: If time is entered above; I have spent that time in minutes in the direct care of this critically ill patient, excluding procedure time. ED Disposition Clinical Impression: Dizziness, Left-sided Subramanian's palsy Disposition: DC-01 TO HOME OR SELFCARE Is pt being admited?: No Condition: Stable Instructions: Hypertension (ED) Referrals: [facility] [Provider Group] - 3-5 Days
[2018-09-16 18:01] LABS: Basophils % (Auto) 0.3 % (0.0-1.8); Hematocrit 43.7 % (35.5-45.6); Hemoglobin 14.6 gm/dl (11.8-15.2); Lymphocytes # (Auto) 1.2 K/mm3 (1.2-5.4); Lymphocytes % (Auto) 13.4 % (13.4-35.0); Mean Corpuscular HGB Conc 34 % (32-34); Mean Corpuscular Volume 95 fl (84-94); Monocytes # (Auto) 0.4 K/mm3 (0.0-0.8); Monocytes % (Auto) 4.3 % (0.0-7.3); Platelet Count 214 K/mm3 (140-440); Red Blood Count 4.62 M/mm3 (3.65-5.03); Red Cell Distribution Width 13.9 % (13.2-15.2)
[2018-09-16 18:15] LABS: INR 1.04 (0.87-1.13)
[2018-09-16 18:21] LABS: BUN/Creatinine Ratio 15; Blood Urea Nitrogen 17 mg/dL (9-20); Hemolysis Index 46
== END 2018-09-16 18:59 | disposition home or self-care (01) ==
LOC: ED 17:13
DX: G51.0 Bell's palsy (principal); R42 Dizziness and giddiness
CPT/HCPCS: 36415; 80048; 85025; 85379; 85610; 85730; 99282; 99283

== ENCOUNTER 2018-09-16 19:56 | Emergency (ER) | payer OTHER ==
[2018-09-16] MEDS ORDERED: CATAPRES PO ONE (20:07)
--- NOTE | 2018-09-16 20:34 | Emergency Department Report ---
ED General Adult HPI - General Chief complaint: Weakness Stated complaint: SYNCOPE Time Seen by Provider: 09/16/18 20:06 Source: patient Mode of arrival: Ambulatory Limitations: No Limitations - History of Present Illness Initial comments: Patient is 58 years old male with a recent diagnosis of Subramanian's palsy and a negative stroke workup. Patient was discharged from the emergency room just 2 hours ago after patient was seen for sudden onset of dizziness and found to have a high blood pressure which he completely normalized by the time patient can get into the ER with complete resolution of his symptoms. Patient stated that he felt the symptoms again and he rushed back to the emergency room. Patient now is calm symptoms completely gone again and blood pressure is 126/68 now. Patient again denying any headache, chest pain, shortness of breath, weakness numbness or tingling sensation. No bowel or bladder incontinence. - Related Data Previous Rx's Medication Instructions Recorded Last Taken Type Acyclovir [Zovirax Cap] 400 mg PO Q8HR #30 capsule 09/15/18 Unknown Rx Aspirin [Aspirin TAB] 325 mg PO QDAY #30 tablet 09/15/18 Unknown Rx AtorvaSTATin [Lipitor] 40 mg PO QHS #30 tablet 09/15/18 Unknown Rx predniSONE [Deltasone] 40 mg PO QDAY #5 tablet 09/15/18 Unknown Rx hydroCHLOROthiazide [HCTZ] 25 mg PO QDAY #30 tablet 09/16/18 Unknown Rx Allergies Allergy/AdvReac Type Severity Reaction Status Date / Time No Known Allergies Allergy Unverified 09/13/18 16:19 ED Review of Systems ROS: Stated complaint: SYNCOPE Other details as noted in HPI Comment: All other systems reviewed and negative Constitutional: denies: chills, fever Respiratory: denies: cough, orthopnea, shortness of breath, SOB with exertion, SOB at rest, wheezing Cardiovascular: denies: chest pain, palpitations, dyspnea on exertion Gastrointestinal: denies: abdominal pain, nausea, vomiting, diarrhea, constip ation, hematemesis, melena, hematochezia Musculoskeletal: denies: back pain Neurological: denies: headache, weakness, numbness, paresthesias, confusion ED Past Medical Hx - Past Medical History Previous Medical History?: Yes Hx Congestive Heart Failure: No Hx Diabetes: No Hx Asthma: No Hx COPD: No Additional medical history: [place] Palsy - Surgical History Past Surgical History?: No - Social History Smoking Status: Never Smoker Substance Use Type: Alcohol - Medications Home Medications: Home Medications Medication Instructions Recorded Confirmed Last Taken Type Acyclovir [Zovirax Cap] 400 mg PO Q8HR #30 capsule 09/15/18 Unknown Rx Aspirin [Aspirin TAB] 325 mg PO QDAY #30 tablet 09/15/18 Unknown Rx AtorvaSTATin [Lipitor] 40 mg PO QHS #30 tablet 09/15/18 Unknown Rx predniSONE [Deltasone] 40 mg PO QDAY #5 tablet 09/15/18 Unknown Rx hydroCHLOROthiazide [HCTZ] 25 mg PO QDAY #30 tablet 09/16/18 Unknown Rx ED Physical Exam - General Limitations: No Limitations General appearance: alert, in no apparent distress, anxious - Head Head exam: Present: atraumatic, normocephalic, normal inspection - Eye Eye exam: Present: normal appearance, PERRL - ENT ENT exam: Present: normal exam, normal orophraynx, mucous membranes moist - Neck Neck exam: Present: normal inspection, full ROM. Absent: tenderness, meningismus, lymphadenopathy, thyromegaly - Respiratory Respiratory exam: Present: normal lung sounds bilaterally - Cardiovascular Cardiovascular Exam: Present: regular rate, normal rhythm, normal heart sounds - GI/Abdominal GI/Abdominal exam: Present: soft, normal bowel sounds. Absent: distended, tenderness, guarding, rebound, rigid, organomegaly, mass, bruit, pulsatile mass, hernia - Extremities Exam Extremities exam: Present: normal inspection, full ROM, normal capillary refill. Absent: pedal edema, calf tenderness - Back Exam Back exam: Present: normal inspection, full ROM. Absent: CVA tenderness (R), CVA tenderness (L), muscle spasm, paraspinal tenderness, vertebral tenderness - Neurological Exam Neurological exam: Present: alert, oriented X3, CN II-XII intact, normal gait, reflexes normal - Psychiatric Psychiatric exam: Present: normal mood - Skin Skin exam: Present: warm, intact, normal color ED Course Vital Signs 09/16/18 09/16/18 09/16/18 20:04 20:12 20:16 Temperature 97.6 F Pulse Rate 80 75 76 Respiratory 13 9 L 9 L Rate Blood Pressure 146/89 132/77 Blood Pressure 146/89 139/85 [Left] O2 Sat by Pulse 99 99 99 Oximetry 09/16/18 09/16/18 09/16/18 20:21 20:30 20:45 Temperature Pulse Rate 80 79 76 Respiratory 9 L 12 Rate Blood Pressure 139/85 126/66 131/81 Blood Pressure [Left] O2 Sat by Pulse 99 100 Oximetry 09/16/18 09/16/18 09/16/18 21:00 21:15 21:30 Temperature Pulse Rate 69 81 69 Respiratory 14 24 16 Rate Blood Pressure 131/78 131/84 129/66 Blood Pressure [Left] O2 Sat by Pulse 96 98 99 Oximetry 09/16/18 09/16/18 09/16/18 21:45 22:00 22:15 Temperature Pulse Rate 68 92 H 102 H Respiratory 18 14 16 Rate Blood Pressure 126/76 143/94 154/97 Blood Pressure [Left] O2 Sat by Pulse 97 98 99 Oximetry 09/16/18 09/16/18 09/16/18 22:30 22:46 23:00 Temperature Pulse Rate 88 85 86 Respiratory 13 14 12 Rate Blood Pressure 150/86 150/86 140/65 Blood Pressure [Left] O2 Sat by Pulse 99 99 99 Oximetry 09/16/18 09/16/18 09/16/18 23:15 23:30 23:45 Temperature Pulse Rate 86 78 71 Respiratory 14 14 14 Rate Blood Pressure 152/83 147/80 146/75 Blood Pressure [Left] O2 Sat by Pulse 99 96 98 Oximetry 09/17/18 09/17/18 09/17/18 00:00 00:02 00:15 Temperature Pulse Rate 70 68 75 Respiratory 14 14 14 Rate Blood Pressure 138/74 152/83 127/79 Blood Pressure [Left] O2 Sat by Pulse 98 99 97 Oximetry 09/17/18 09/17/18 09/17/18 00:31 00:45 01:01 Temperature Pulse Rate 83 65 75 Respiratory 15 13 15 Rate Blood Pressure 117/77 117/66 121/75 Blood Pressure [Left] O2 Sat by Pulse 98 97 96 Oximetry - Reevaluation(s) Reevaluation #1: 09/16/18 23:14 Patient evaluated by me multiple times patient remained stable but anxious. Denied any dizziness, weakness, numbness or tingling sensation. Patient also denied any chest pain, abdominal pain, nausea or vomiting. Reevaluation #2: 09/17/18 01:23 Patient is sleeping comfortably in no acute distress. ED Medical Decision Making - Medical Decision Making Patient is 58 years old male with a recent diagnosis of Subramanian's palsy and a negative stroke workup. Patient was discharged from the emergency room just 2 hours ago after patient was seen for sudden onset of dizziness and found to have a high blood pressure which he completely normalized by the time patient can get into the ER with complete resolution of his symptoms. Patient stated that he felt the symptoms again and he rushed back to the emergency room. Patient now is calm symptoms completely gone again and blood pressure is 126/68 now. Patient again denying any headache, chest pain, shortness of breath, weakness numbness or tingling sensation. No bowel or bladder incontinence. Patient remained asymptomatic in the emergency room. Patient refused CT brain and refuses clonidine. Patient took hydrochlorothiazide. I believe the patient's symptoms is most likely related to an anxiety given his new diagnosis of Subramanian's palsy. Critical care attestation.: If time is entered above; I have spent that time in minutes in the direct care of this critically ill patient, excluding procedure time. ED Disposition Clinical Impression: Left-sided Subramanian's palsy, Dizziness, Anxiety Disposition: DC-01 TO HOME OR SELFCARE Is pt being admited?: No Condition: Stable Instructions: Dizziness (ED) Referrals: KELECHI WU MD [Primary Care Provider] - 3-5 Days
[2018-09-16] MEDS ORDERED: HCTZ PO ONE (20:35)
[2018-09-16] MEDS ORDERED: ATIVAN PO ONE (23:14)
[2018-09-17 01:58] VITALS: BP 129/72
== END 2018-09-17 01:57 | disposition home or self-care (01) ==
LOC: ED 19:56
DX: G51.0 Bell's palsy (principal); R42 Dizziness and giddiness; F41.9 Anxiety disorder, unspecified
CPT/HCPCS: 99282

== ENCOUNTER 2018-09-19 10:14 | Emergency (ER) | payer OTHER ==
[2018-09-19 10:23] VITALS: BP 127/84
--- NOTE | 2018-09-19 11:16 | Emergency Department Report ---
ED General Adult HPI - General Chief complaint: Weakness Stated complaint: BELLS PALSY/WEAKNESS/DIZZINESS Time Seen by Provider: 09/19/18 10:56 Source: patient Mode of arrival: Ambulatory Limitations: No Limitations - History of Present Illness Initial comments: 58-year-old male presents to ED with complaint of generalized weakness and anxiety for approximately one week. -: week(s) (1) Severity scale (0 -10): 6 Consistency: constant Improves with: none Worsens with: none Associated Symptoms: weakness. denies: chest pain, fever/chills, headaches, nausea/vomiting, shortness of breath - Related Data Previous Rx's Medication Instructions Recorded Last Taken Type Acyclovir [Zovirax Cap] 400 mg PO Q8HR #30 capsule 09/15/18 Unknown Rx Aspirin [Aspirin TAB] 325 mg PO QDAY #30 tablet 09/15/18 Unknown Rx AtorvaSTATin [Lipitor] 40 mg PO QHS #30 tablet 09/15/18 Unknown Rx predniSONE [Deltasone] 40 mg PO QDAY #5 tablet 09/15/18 Unknown Rx hydroCHLOROthiazide [HCTZ] 25 mg PO QDAY #30 tablet 09/16/18 Unknown Rx LORazepam [Ativan] 1 mg PO QHS #3 tab 09/17/18 Unknown Rx LORazepam [Ativan] 1 mg PO BID PRN #6 tab 09/19/18 Unknown Rx Allergies Allergy/AdvReac Type Severity Reaction Status Date / Time No Known Allergies Allergy Verified 09/19/18 10:16 ED Review of Systems ROS: Stated complaint: BELLS PALSY/WEAKNESS/DIZZINESS Other details as noted in HPI Comment: All other systems reviewed and negative Constitutional: denies: chills, fever Respiratory: denies: cough, shortness of breath Cardiovascular: denies: chest pain Gastrointestinal: denies: abdominal pain, nausea, vomiting, diarrhea Neurological: denies: headache ED Past Medical Hx - Past Medical History Hx Congestive Heart Failure: No Hx Diabetes: No Hx Asthma: No Hx COPD: No Additional medical history: [place] Palsy - Social History Smoking Status: Never Smoker Substance Use Type: Alcohol, Prescribed - Medications Home Medications: Home Medications Medication Instructions Recorded Confirmed Last Taken Type Acyclovir [Zovirax Cap] 400 mg PO Q8HR #30 capsule 09/15/18 Unknown Rx Aspirin [Aspirin TAB] 325 mg PO QDAY #30 tablet 09/15/18 Unknown Rx AtorvaSTATin [Lipitor] 40 mg PO QHS #30 tablet 09/15/18 Unknown Rx predniSONE [Deltasone] 40 mg PO QDAY #5 tablet 09/15/18 Unknown Rx hydroCHLOROthiazide [HCTZ] 25 mg PO QDAY #30 tablet 09/16/18 Unknown Rx LORazepam [Ativan] 1 mg PO QHS #3 tab 09/17/18 Unknown Rx LORazepam [Ativan] 1 mg PO BID PRN #6 tab 09/19/18 Unknown Rx ED Physical Exam - General Limitations: No Limitations General appearance: alert, in no apparent distress - Head Head exam: Present: atraumatic, normocephalic - Eye Eye exam: Present: normal appearance - ENT ENT exam: Present: mucous membranes moist - Neck Neck exam: Present: normal inspection - Respiratory Respiratory exam: Present: normal lung sounds bilaterally. Absent: respiratory distress - Cardiovascular Cardiovascular Exam: Present: regular rate, normal rhythm - GI/Abdominal GI/Abdominal exam: Present: soft. Absent: distended, tenderness - Extremities Exam Extremities exam: Present: normal inspection - Neurological Exam Neurological exam: Present: alert, oriented X3. Absent: CN II-XII intact (left facial weakness noted c/w Subramanian's palsy) - Psychiatric Psychiatric exam: Present: normal affect, normal mood - Skin Skin exam: Present: warm, dry, intact, normal color ED Course Vital Signs 09/19/18 10:21 Temperature 97.8 F Pulse Rate 98 H Respiratory 20 Rate Blood Pressure 127/84 O2 Sat by Pulse 99 Oximetry ED Medical Decision Making - Lab Data Result diagrams: 09/19/18 11:32 09/19/18 11:32 - Medical Decision Making Patient presents to ED with complaint of generalized weakness and anxiety 1 week. Patient was admitted on 09/13 for stroke workup. Patient was discharged on 09/15 with diagnosis of left-sided Subramanian's palsy. Patient returned to ER in the next day on 09/16 with complaint of dizziness. Blood pressure was elevated, however normalized her ED stay. Patient was discharged from the ED at that time and returned 2 hours later on 09/16 with complaints of dizziness again. Patient refused head CT at that time. Today patient just reports generalized weakness, no dizziness, which he states has been on going even throughout his hospital admission stay. Neuro exam unremarkable, except for obvious Subramanian's Palsy. Gait normal. Today's labs show mild hyponaytremia. 1L bolus IV fluids given. Pt requests rx for more Ativan, which he was given prescription for 3 tabs when he was seen 3 days ago. Will give rx for Ativan, 6 tabs to be taken BID as needed. Advised outpatient follow-up. Return precautions given. - Differential Diagnosis anxiety Critical care attestation.: If time is entered above; I have spent that time in minutes in the direct care of this critically ill patient, excluding procedure time. ED Disposition Clinical Impression: Anxiety Disposition: DC-01 TO HOME OR SELFCARE Is pt being admited?: No Condition: Stable Instructions: Hyponatremia (ED), Anxiety (ED) Prescriptions: LORazepam [Ativan] 1 mg PO BID PRN #6 tab PRN Reason: Anxiety Referrals: [facility] [Other] - 3-5 Days BECKA ROSA MD [Staff Physician] - 3-5 Days Time of Disposition: 14:02
[2018-09-19 12:18] LABS: Basophils % (Auto) 0.5 % (0.0-1.8); Eosinophils # (Auto) 0.1 K/mm3 (0.0-0.4); Eosinophils % (Auto) 1.4 % (0.0-4.3); Hematocrit 49.5 % (35.5-45.6); Hemoglobin 16.7 gm/dl (11.8-15.2); Lymphocytes # (Auto) 2.4 K/mm3 (1.2-5.4); Lymphocytes % (Auto) 33.3 % (13.4-35.0); Mean Corpuscular HGB Conc 34 % (32-34); Mean Corpuscular Volume 93 fl (84-94); Monocytes # (Auto) 0.6 K/mm3 (0.0-0.8); Monocytes % (Auto) 7.8 % (0.0-7.3); Platelet Count 250 K/mm3 (140-440); Red Blood Count 5.35 M/mm3 (3.65-5.03); Red Cell Distribution Width 13.5 % (13.2-15.2)
[2018-09-19 12:59] LABS: Calcium 9.3 mg/dL (8.4-10.2)
[2018-09-19] MEDS ORDERED: NACL 0.9% 1000 ML 1,000 ML IV ONE (13:06)
== END 2018-09-19 14:16 | disposition home or self-care (01) ==
LOC: ED 10:14
DX: F41.9 Anxiety disorder, unspecified (principal); Z86.69 Personal history of other diseases of the nervous system and sense organs
CPT/HCPCS: 36415; 80048; 85025; 99283; J7030

== ENCOUNTER 2018-09-21 19:40 | Emergency (ER) | payer OTHER ==
[2018-09-22 00:07] LABS: Hematocrit 45.6 % (35.5-45.6); Hemoglobin 15.7 gm/dl (11.8-15.2); Mean Corpuscular HGB Conc 35 % (32-34); Mean Corpuscular Volume 91 fl (84-94); Platelet Count 239 K/mm3 (140-440); Red Blood Count 4.99 M/mm3 (3.65-5.03); Red Cell Distribution Width 13.3 % (13.2-15.2)
[2018-09-22 00:27] LABS: BUN/Creatinine Ratio 9; Blood Urea Nitrogen 9 mg/dL (9-20); Calcium 9.8 mg/dL (8.4-10.2); Hemolysis Index 27
[2018-09-22] MEDS ORDERED: NACL 0.9% 1000 ML 1,000 ML IV ONE (03:43)
[2018-09-22] MEDS ORDERED: TORADOL IV ONE (03:43)
[2018-09-22] MEDS ORDERED: DECADRON IV ONE (03:43)
--- NOTE | 2018-09-22 04:17 | Emergency Department Report ---
ED General Adult HPI - General Chief complaint: Earache Stated complaint: FACIAL SWELLING ON LEFT SIDE OF FACE Time Seen by Provider: 09/22/18 03:38 Source: patient Limitations: No Limitations - History of Present Illness Initial comments: Patient is a 58-year-old Afro-[place] male who presents for headache dizziness recurrent since diagnosis of [place] palsy 09/14/2018 patient states earache and left cheek and facial numbness mild paresthesia , states relief with Ativan , pt is not currently taking any medications including acyclovir or prednisone, currently symptoms are relieved by nothing . symptoms are exacerbated by nothing. pt is tolerating po intake there is no n/v Onset/Timin -: month(s) Location: face Radiation: non-radiation Severity scale (0 -10): 9 Quality: aching Consistency: constant Improves with: none Worsens with: none Associated Symptoms: denies other symptoms Treatments Prior to Arrival: none - Related Data Previous Rx's Medication Instructions Recorded Last Taken Type Acyclovir [Zovirax Cap] 400 mg PO Q8HR #30 capsule 09/15/18 Unknown Rx Aspirin [Aspirin TAB] 325 mg PO QDAY #30 tablet 09/15/18 Unknown Rx AtorvaSTATin [Lipitor] 40 mg PO QHS #30 tablet 09/15/18 Unknown Rx predniSONE [Deltasone] 40 mg PO QDAY #5 tablet 09/15/18 Unknown Rx hydroCHLOROthiazide [HCTZ] 25 mg PO QDAY #30 tablet 09/16/18 Unknown Rx LORazepam [Ativan] 1 mg PO QHS #3 tab 09/17/18 Unknown Rx LORazepam [Ativan] 1 mg PO BID PRN #6 tab 09/19/18 Unknown Rx Acetaminophen/Codeine [Tylenol 1 tab PO Q6H PRN #12 tab 09/22/18 Unknown Rx /Codeine # 3 tab] Valacyclovir HCl [Valtrex] 1,000 mg PO BID 10 Days #20 tab 09/22/18 Unknown Rx predniSONE [Prednisone] 50 mg PO DAILY 5 Days #5 tablet 09/22/18 Unknown Rx Allergies Allergy/AdvReac Type Severity Reaction Status Date / Time No Known Allergies Allergy Verified 09/19/18 10:16 ED Review of Systems ROS: Stated complaint: FACIAL SWELLING ON LEFT SIDE OF FACE Other details as noted in HPI Constitutional: denies: chills, fever Eyes: denies: eye pain, eye discharge, vision change ENT: denies: ear pain, throat pain Respiratory: see HPI Cardiovascular: denies: chest pain, palpitations Endocrine: no symptoms reported Gastrointestinal: denies: abdominal pain, nausea, diarrhea Genitourinary: denies: urgency, dysuria Musculoskeletal: denies: back pain, joint swelling, arthralgia Skin: denies: rash, lesions Neurological: weakness (left cheek ), paresthesias (left cheek ). denies: confusion, abnormal gait, vertigo Psychiatric: denies: anxiety, depression Hematological/Lymphatic: denies: easy bleeding, easy bruising ED Past Medical Hx - Past Medical History Previous Medical History?: Yes Hx Congestive Heart Failure: No Hx Diabetes: No Hx Asthma: No Hx COPD: No Additional medical history: [place] Palsy - Social History Smoking Status: Former Smoker - Medications Home Medications: Home Medications Medication Instructions Recorded Confirmed Last Taken Type Acyclovir [Zovirax Cap] 400 mg PO Q8HR #30 capsule 09/15/18 Unknown Rx Aspirin [Aspirin TAB] 325 mg PO QDAY #30 tablet 09/15/18 Unknown Rx AtorvaSTATin [Lipitor] 40 mg PO QHS #30 tablet 09/15/18 Unknown Rx predniSONE [Deltasone] 40 mg PO QDAY #5 tablet 09/15/18 Unknown Rx hydroCHLOROthiazide [HCTZ] 25 mg PO QDAY #30 tablet 09/16/18 Unknown Rx LORazepam [Ativan] 1 mg PO QHS #3 tab 09/17/18 Unknown Rx LORazepam [Ativan] 1 mg PO BID PRN #6 tab 09/19/18 Unknown Rx Acetaminophen/Codeine [Tylenol 1 tab PO Q6H PRN #12 tab 09/22/18 Unknown Rx /Codeine # 3 tab] Valacyclovir HCl [Valtrex] 1,000 mg PO BID 10 Days #20 tab 09/22/18 Unknown Rx predniSONE [Prednisone] 50 mg PO DAILY 5 Days #5 tablet 09/22/18 Unknown Rx ED Physical Exam - General Limitations: No Limitations General appearance: alert, in no apparent distress - Head Head exam: Present: atraumatic, normocephalic - Eye Eye exam: Present: normal appearance, PERRL, EOMI. Absent: periorbital swelling, periorbital tenderness Pupils: Present: normal accommodation - ENT ENT exam: Present: normal orophraynx, mucous membranes moist, TM's normal bilaterally. Absent: normal external ear exam - Neck Neck exam: Present: normal inspection, full ROM. Absent: tenderness, meningismus, lymphadenopathy, thyromegaly - Respiratory Respiratory exam: Present: normal lung sounds bilaterally. Absent: respiratory distress, wheezes, stridor, chest wall tenderness - Cardiovascular Cardiovascular Exam: Present: regular rate, normal rhythm, normal heart sounds. Absent: systolic murmur, diastolic murmur, rubs, gallop - GI/Abdominal GI/Abdominal exam: Present: soft, normal bowel sounds. Absent: tenderness, guarding, rebound, bruit, hernia - Rectal Rectal exam: Present: deferred - Extremities Exam Extremities exam: Present: normal inspection, full ROM, normal capillary refill. Absent: tenderness, pedal edema, joint swelling, calf tenderness - Back Exam Back exam: Present: normal inspection, full ROM, muscle spasm. Absent: te nderness, CVA tenderness (R), CVA tenderness (L), paraspinal tenderness, vertebral tenderness, rash noted - Neurological Exam Neurological exam: Present: alert, oriented X3, normal gait, reflexes normal - Expanded Neurological Exam Expanded Patient oriented to: Present: person, place, time Speech: Present: fluid speech Cranial nerves: EOM's Intact: Normal, Gag Reflex: Normal, Tongue Deviation: Normal, Nystagmus: Normal, Facial Sensation: Normal, Facial Palsy without Forehead Movement: Abnormal Left Cerebellar function: Finger to Nose: Normal, Heel to Gonzalez: Normal, Romberg: Normal Upper motor neuron: Sarmad Neglect: Normal, Pronator Drift: Normal, Babinski Sign: Normal, Sensory Extinction: Normal Sensory exam: Upper Extremity Light Touch: Normal, Upper Extremity Pin Prick: Normal, Upper Extremity Temperature: Normal, UE 2 Point Discrimination: Normal, Lower Extremity Light Touch: Normal, Lower Extremity Pin Prick: Normal, Lower Extremity Temperature: Normal, LE 2 Point Discrimination: Normal Motor strength exam: RUE: 5, LUE: 5, RLE: 5, LLE: 5 DTR: bicep (R): 2+, bicep (L): 2+, tricep (R): 2+, tricep (L): 2+, knee (R): 2+, knee (L): 2+, ankle (R): 2+, ankle (L): 2+ Best Eye Response ([place]): (4) open spontaneously Best Motor Response ([place]): (6) obeys commands Best Verbal Response ([place]): (5) oriented Holden Total: 15 - Psychiatric Psychiatric exam: Present: normal affect, normal mood, anxious. Absent: flat affect, manic, homicidal ideation, suicidal ideation, other - Skin Skin exam: Present: warm, dry, intact, normal color. Absent: rash ED Course Vital Signs 09/21/18 09/21/18 20:14 22:34 Temperature 98.9 F 98.9 F Pulse Rate 91 H 90 Respiratory 18 18 Rate Blood Pressure 149/82 149/82 O2 Sat by Pulse 99 99 Oximetry ED Medical Decision Making - Lab Data Result diagrams: 09/21/18 23:50 09/21/18 23:50 Labs 09/21/18 09/21/18 23:50 23:50 WBC 8.2 RBC 4.99 Hgb 15.7 H Hct 45.6 MCV 91 MCH 32 MCHC 35 H RDW 13.3 Plt Count 239 Sodium 134 L Potassium 3.7 Chloride 91.8 L Carbon Dioxide 31 H Anion Gap 15 BUN 9 Creatinine 1.0 Estimated GFR > 60 BUN/Creatinine Ratio 9 Glucose 107 H Calcium 9.8 - EKG Data EKG shows normal: sinus rhythm, axis, intervals, QRS complexes, ST-T waves Rate: normal - EKG Data When compared to previous EKG there are: no significant change Interpretation: normal EKG (ekg inter by ed attending NSR No ST elevation ) - Radiology Data Radiology results: report reviewed, image reviewed CT Head: PROCEDURE: CT HEAD/BRAIN WO CON TECHNIQUE: Routine axial imaging was obtained of the brain without IV contrast. HISTORY: bells palsy COMPARISONS: 09/13/2018 FINDINGS: There is no evidence of acute stroke or hemorrhage. The ventricular system is appropriate in size and is symmetric. There is benign basal ganglial calcifications. The visualized sinuses are clear. The mastoid air cells are well pneumatized. The calvarium appears intact. IMPRESSION: No acute intracranial process.. This document is electronically signed by Marcela Duque MD., September 22 2018 05:04:55 AM ET Transcribed By: RB Dictated By: MARCELA DUQUE MD Electronically Authenticated By: MARCELA DUQUE MD Signed Date/Time: 09/22/18 3599 DD/ [id number] TD/TT: 09/22/18 0501 - Medical Decision Making Patient denies his symptoms are improved after IV fluids and medications given in ED plan acyclovir, and prednisone ,Tylenol 3, patient will follow up with PCP tomorrow as originally scheduled patient verbalized agreement and understanding with same patient is currently A/O 3 and patellar with steady gait is no generalized weakness patient is tolerating by mouth intake. Critical care attestation.: If time is entered above; I have spent that time in minutes in the direct care of this critically ill patient, excluding procedure time. ED Disposition Clinical Impression: Otalgia of left ear, Dizziness Disposition: DC- TO HOME OR SELFCARE Is pt being admited?: No Does the pt Need Aspirin: No Condition: Stable Instructions: Subramanian Palsy (ED), Dizziness (ED) Prescriptions: predniSONE [Prednisone] 50 mg PO DAILY 5 Days #5 tablet Acetaminophen/Codeine [Tylenol /Codeine # 3 tab] 1 tab PO Q6H PRN #12 tab PRN Reason: pain Valacyclovir HCl [Valtrex] 1,000 mg PO BID 10 Days #20 tab Referrals: PRATIMA MCFARLAND MD [Staff Physician] - 3-5 Days DRAKE SHARPE MD [Referring] - 3-5 Days Forms: Work/School Release Form(ED) Time of Disposition: 06:14
--- NOTE | 2018-09-22 05:07 | Cat Scan Report ---
PROCEDURE: CT HEAD/BRAIN WO CON TECHNIQUE: Routine axial imaging was obtained of the brain without IV contrast. HISTORY: bells palsy COMPARISONS: 09/13/2018 FINDINGS: There is no evidence of acute stroke or hemorrhage. The ventricular system is appropriate in size and is symmetric. There is benign basal ganglial calcifications. The visualized sinuses are clear. The m astoid air cells are well pneumatized. The calvarium appears intact. IMPRESSION: No acute intracranial process.. This document is electronically signed by Wang Duque MD., September 22 2018 05:04:55 AM ET
[2018-09-22 06:50] VITALS: BP 134/78
== END 2018-09-22 06:45 | disposition home or self-care (01) ==
LOC: ED 19:40
DX: R42 Dizziness and giddiness (principal); H92.02 Otalgia, left ear; Z87.891 Personal history of nicotine dependence
CPT/HCPCS: 36415; 70450; 80048; 85027; 96361; 96374; 96375; 99284; J1100; J1885; J7030

== ENCOUNTER 2018-09-27 19:28 | Emergency (ER) | payer OTHER ==
--- NOTE | 2018-09-27 20:18 | Emergency Department Report ---
Chief Complaint: High BP Stated Complaint: BLOOD PRESSURE BLOOD IN STOOL Time Seen by Provider: 09/27/18 20:15 - HPI History of Present Illness: BEING TREATED FOR BELLS PALSY OUT OF [facility] TAKING TYLENOL AND ASA HERE CO BRIGHT RED BLOOD IN STOOL AND ELEVATED BLOOD PRESSURE HE IS TAKING HCTZ SOUNDS LIKE IT WAS GIVEN TO HIM HERE IN ER PMH PREDNISONE HCTZ ACYCLOVIR STATIN DENIES CVA IN PAST MSE COMPLETED - Exam Vital Signs: Vital Signs 09/27/18 20:07 Temperature 97.9 F Pulse Rate 94 H Respiratory 18 Rate Blood Pressure 175/96 O2 Sat by Pulse 98 Oximetry MSE screening note: Focused history and physical exam performed. Due to findings the following was ordered: ED Disposition for MSE Condition: Stable
[2018-09-27 20:29] LABS: Hematocrit 45.1 % (35.5-45.6); Hemoglobin 14.9 gm/dl (11.8-15.2); Mean Corpuscular HGB Conc 33 % (32-34); Mean Corpuscular Volume 94 fl (84-94); Platelet Count 224 K/mm3 (140-440); Red Blood Count 4.79 M/mm3 (3.65-5.03); Red Cell Distribution Width 13.7 % (13.2-15.2)
[2018-09-27 21:19] LABS: Alanine Aminotransferase 44 units/L (7-56); Albumin 4.4 g/dL (3.9-5); BUN/Creatinine Ratio 12; Blood Urea Nitrogen 14 mg/dL (9-20); Calcium 9.8 mg/dL (8.4-10.2); Hemolysis Index 15
--- NOTE | 2018-09-28 00:19 | XRay Report ---
XR ABDOMEN 1V AP CLINICAL INDICATION: Male, 58 years of age. abd COMPARISON: None available. FINDINGS: AP views of the abdomen obtained. Small amount of stool within the colon. Gas is scattered within nondilated large and small bowel loops. No gross pathological calcifications. IMPRESSION: Nonobstructive bowel gas pattern. This document is electronically signed by Tatiana Dexter DO., September 28 2018 12:17:44 AM ET
--- NOTE | 2018-09-28 01:46 | Emergency Department Report ---
ED General Adult HPI - General Chief complaint: High BP Stated complaint: BLOOD PRESSURE BLOOD IN STOOL Time Seen by Provider: 09/27/18 20:15 Source: patient Mode of arrival: Ambulatory Limitations: No Limitations - History of Present Illness Initial comments: Patient is a 58-year-old -Turkmen male who presents for abdominal pain patient states he saw bright red blood tissue this evening 1 there's been no repeat blood in stool episode with additional bowel movement was today is no fever no chills no nausea no vomiting patient has a history of Subramanian's palsy and hypertension PP 178/85 today patient hydrochlorothiazide for blood pressure is no chest pain or shortness of breath no dizziness no nausea vomiting patient does report increased flatulence patient is tolerating by mouth intake without nausea vomiting Onset/Timin -: hour(s) Location: abdomen Severity scale (0 -10): 4 Quality: sharp, other (pressure ) Consistency: intermittent Improves with: rest Worsens with: movement Associated Symptoms: denies: fever/chills, loss of appetite, nausea/vomiting, weakness - Related Data Previous Rx's Medication Instructions Recorded Last Taken Type Acyclovir [Zovirax Cap] 400 mg PO Q8HR #30 capsule 09/15/18 Unknown Rx Aspirin [Aspirin TAB] 325 mg PO QDAY #30 tablet 09/15/18 Unknown Rx AtorvaSTATin [Lipitor] 40 mg PO QHS #30 tablet 09/15/18 Unknown Rx predniSONE [Deltasone] 40 mg PO QDAY #5 tablet 09/15/18 Unknown Rx hydroCHLOROthiazide [HCTZ] 25 mg PO QDAY #30 tablet 09/16/18 Unknown Rx LORazepam [Ativan] 1 mg PO QHS #3 tab 09/17/18 Unknown Rx LORazepam [Ativan] 1 mg PO BID PRN #6 tab 09/19/18 Unknown Rx Acetaminophen/Codeine [Tylenol 1 tab PO Q6H PRN #12 tab 09/22/18 Unknown Rx /Codeine # 3 tab] Valacyclovir HCl [Valtrex] 1,000 mg PO BID 10 Days #20 tab 09/22/18 Unknown Rx predniSONE [Prednisone] 50 mg PO DAILY 5 Days #5 tablet 09/22/18 Unknown Rx Dicyclomine [Bentyl] 10 mg PO QID PRN #30 capsule 09/28/18 Unknown Rx Naproxen 500 mg PO BID PRN #30 tablet 09/28/18 Unknown Rx Polyethylene Glycol 3350 [Miralax 17 gm PO BID PRN #14 packet 09/28/18 Unknown Rx 3350] Allergies Allergy/AdvReac Type Severity Reaction Status Date / Time No Known Allergies Allergy Verified 09/19/18 10:16 ED Review of Systems ROS: Stated complaint: BLOOD PRESSURE BLOOD IN STOOL Other details as noted in HPI Constitutional: denies: chills, fever Eyes: denies: eye pain, eye discharge, vision change ENT: denies: ear pain, throat pain Respiratory: denies: cough, shortness of breath, wheezing Cardiovascular: denies: chest pain, palpitations Endocrine: no symptoms reported Gastrointestinal: abdominal pain, constipation. denies: nausea, vomiting, diarrhea, hematemesis, melena, hematochezia Genitourinary: denies: urgency, dysuria Musculoskeletal: denies: back pain, joint swelling, arthralgia Skin: denies: rash, lesions Neurological: denies: headache, weakness, paresthesias Psychiatric: denies: anxiety, depression Hematological/Lymphatic: denies: easy bleeding, easy bruising ED Past Medical Hx - Past Medical History Previous Medical History?: Yes Hx Congestive Heart Failure: No Hx Diabetes: No Hx Asthma: No Hx COPD: No Additional medical history: [place] Palsy - Surgical History Past Surgical History?: Yes - Social History Smoking Status: Never Smoker Substance Use Type: None - Medications Home Medications: Home Medications Medication Instructions Recorded Confirmed Last Taken Type Acyclovir [Zovirax Cap] 400 mg PO Q8HR #30 capsule 09/15/18 Unknown Rx Aspirin [Aspirin TAB] 325 mg PO QDAY #30 tablet 09/15/18 Unknown Rx AtorvaSTATin [Lipitor] 40 mg PO QHS #30 tablet 09/15/18 Unknown Rx predniSONE [Deltasone] 40 mg PO QDAY #5 tablet 09/15/18 Unknown Rx hydroCHLOROthiazide [HCTZ] 25 mg PO QDAY #30 tablet 09/16/18 Unknown Rx LORazepam [Ativan] 1 mg PO QHS #3 tab 09/17/18 Unknown Rx LORazepam [Ativan] 1 mg PO BID PRN #6 tab 09/19/18 Unknown Rx Acetaminophen/Codeine [Tylenol 1 tab PO Q6H PRN #12 tab 09/22/18 Unknown Rx /Codeine # 3 tab] Valacyclovir HCl [Valtrex] 1,000 mg PO BID 10 Days #20 tab 09/22/18 Unknown Rx predniSONE [Prednisone] 50 mg PO DAILY 5 Days #5 tablet 09/22/18 Unknown Rx Dicyclomine [Bentyl] 10 mg PO QID PRN #30 capsule 09/28/18 Unknown Rx Naproxen 500 mg PO BID PRN #30 tablet 09/28/18 Unknown Rx Polyethylene Glycol 3350 [Miralax 17 gm PO BID PRN #14 packet 09/28/18 Unknown Rx 3350] ED Physical Exam - General Limitations: No Limitations General appearance: alert, in no apparent distress - Head Head exam: Present: atraumatic, normocephalic - Eye Eye exam: Present: normal appearance, PERRL, EOMI Pupils: Present: normal accommodation - ENT ENT exam: Present: mucous membranes moist - Neck Neck exam: Present: normal inspection, full ROM. Absent: tenderness, meningismus, lymphadenopathy, thyromegaly - Respiratory Respiratory exam: Present: normal lung sounds bilaterally. Absent: respiratory distress, wheezes, stridor, chest wall tenderness - Cardiovascular Cardiovascular Exam: Present: regular rate, normal rhythm, normal heart sounds. Absent: systolic murmur, diastolic murmur, rubs, gallop - GI/Abdominal GI/Abdominal exam: Present: soft, normal bowel sounds. Absent: distended, tenderness, guarding, rebound, rigid, bruit, hernia - Rectal Rectal exam: Present: normal inspection, hemorrhoids (external hemorrhoid ). Absent: black stool, bloody stool - exam: Present: normal inspection - Extremities Exam Extremities exam: Present: normal inspection - Back Exam Back exam: Present: normal inspection, full ROM. Absent: tenderness, CVA tenderness (R) (.) - Neurological Exam Neurological exam: Present: alert, oriented X3, CN II-XII intact, normal gait, reflexes normal (O) - Psychiatric Psychiatric exam: Present: normal affect, normal mood - Skin Skin exam: Present: warm, dry, intact, normal color. Absent: rash ED Course Vital Signs 09/27/18 09/27/18 20:07 20:17 Temperature 97.9 F 97.9 F Pulse Rate 94 H 93 H Respiratory 18 18 Rate Blood Pressure 175/96 175/96 O2 Sat by Pulse 98 98 Oximetry ED Medical Decision Making - Lab Data Result diagrams: 09/27/18 20:21 09/27/18 20:21 Labs 09/27/18 09/27/18 20:21 20:21 WBC 12.3 H RBC 4.79 Hgb 14.9 Hct 45.1 MCV 94 MCH 31 MCHC 33 RDW 13.7 Plt Count 224 Sodium 134 L Potassium 4.2 Chloride 92.8 L Carbon Dioxide 27 Anion Gap 18 BUN 14 Creatinine 1.2 Estimated GFR > 60 BUN/Creatinine Ratio 12 Glucose 175 H Calcium 9.8 Total Bilirubin 0.20 AST 26 ALT 44 Alkaline Phosphatase 72 Total Protein 7.8 Albumin 4.4 Albumin/Globulin Ratio 1.3 - EKG Data Interpretation: unchanged when compared t - Radiology Data Radiology results: report reviewed, image reviewed Ordering Physician: NILA AGUILAR NP Date of Service: 09/27/18 Procedure(s): XR abdomen 1V ap Accession Number(s): [id number] cc: NILA AGUILAR NP Fluoro Time In Minutes: XR ABDOMEN 1V AP CLINICAL INDICATION: Male, 58 years of age. abd COMPARISON: None available. FINDINGS: AP views of the abdomen obtained. Small amount of stool within the colon. Gas is scattered within nondilated large and small bowel loops. No gross pathological calcifications. IMPRESSION: Nonobstructive bowel gas pattern. This document is electronically signed by Tatiana Dexter DO., September 28 2018 12:17:44 AM ET Transcribed By: LMHank Dictated By: DAHIANA DEXTER MD Electronically Authenticated By: DAHIANA DEXTER MD Signed Date/Time: 09/28/18 0019 DD/ 2349 TD/TT: 09/28/18 0009 - Medical Decision Making Pain is improved patient is tolerating by mouth intake there is no nausea vomiting bowel sounds are normal on X-ray demonstrates moderate stool non obstructive gas pattern plan MiraLAX patient will continue to hydrate at home as directed and follow up PCP in 2 days patient will return to ED symptoms worsen patient will be DC'd home in stable condition at this time Critical care attestation.: If time is entered above; I have spent that time in minutes in the direct care of this critically ill patient, excluding procedure time. ED Disposition Clinical Impression: Constipation Abdominal pain Qualifiers: Abdominal location: generalized Qualified Code(s): R10.84 - Generalized abdominal pain Disposition: DC-01 TO HOME OR SELFCARE Is pt being admited?: No Does the pt Need Aspirin: No (well) Condition: Stable Instructions: Constipation (ED), High Fiber Diet (ED) Prescriptions: Dicyclomine [Bentyl] 10 mg PO QID PRN #30 capsule PRN Reason: abd spasm Polyethylene Glycol 3350 [Miralax 3350] 17 gm PO BID PRN #14 packet PRN Reason: Constipation Naproxen 500 mg PO BID PRN #30 tablet PRN Reason: pain Referrals: [facility] [Outside] - 3-5 Days Forms: Work/School Release Form(ED) Time of Disposition: 02:07
[2018-09-28] MEDS ORDERED: ALUM-MAG HYDROX-SIMETH 200-200-20MG/5ML PO ONE (01:52)
[2018-09-28] MEDS ORDERED: TYLENOL PO ONE (01:52)
[2018-09-28] MEDS ORDERED: LIDOCAINE VISCOUS 2% MM NR (02:00)
[2018-09-28 02:04] VITALS: BP 147/89
== END 2018-09-28 02:15 | disposition home or self-care (01) ==
LOC: ED 19:28
DX: R10.84 Generalized abdominal pain (principal); K59.00 Constipation, unspecified; G51.0 Bell's palsy
CPT/HCPCS: 36415; 74018; 80053; 85027

== ENCOUNTER 2018-09-30 22:01 | Emergency (ER) | payer OTHER ==
[2018-10-01 03:23] VITALS: BP 182/99
--- NOTE | 2018-10-01 04:14 | Emergency Department Report ---
ED ENT HPI - General Chief complaint: Earache Stated complaint: EAR/NECK PAIN Time Seen by Provider: 10/01/18 03:49 Source: patient Mode of arrival: Ambulatory Limitations: No Limitations - History of Present Illness Initial comments: Pt is a 58 yo male who presents to the ED with c/o tinnitus and left sided ear pain for the last month. He was diagnosed with [place] Palsy on september 13 and given steroids and anti-virals. The patient has not seen an ENT doctor. He states he did see a primary care doctor but did not discuss the ear pain. he denies any numbness, weakness, drainage, vision problems, speech difficulty, or fever. 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 The patient was also started on hctz this month for HTN. He states he last took it yesterday morning. - Related Data Previous Rx's Medication Instructions Recorded Last Taken Type Acyclovir [Zovirax Cap] 400 mg PO Q8HR #30 capsule 09/15/18 Unknown Rx Aspirin [Aspirin TAB] 325 mg PO QDAY #30 tablet 09/15/18 Unknown Rx AtorvaSTATin [Lipitor] 40 mg PO QHS #30 tablet 09/15/18 Unknown Rx hydroCHLOROthiazide [HCTZ] 25 mg PO QDAY #30 tablet 09/16/18 Unknown Rx LORazepam [Ativan] 1 mg PO QHS #3 tab 09/17/18 Unknown Rx LORazepam [Ativan] 1 mg PO BID PRN #6 tab 09/19/18 Unknown Rx Valacyclovir HCl [Valtrex] 1,000 mg PO BID 10 Days #20 tab 09/22/18 Unknown Rx Dicyclomine [Bentyl] 10 mg PO QID PRN #30 capsule 09/28/18 Unknown Rx Naproxen 500 mg PO BID PRN #30 tablet 09/28/18 Unknown Rx Polyethylene Glycol 3350 [Miralax 17 gm PO BID PRN #14 packet 09/28/18 Unknown Rx 3350] Acetaminophen/Codeine [Tylenol 1 tab PO Q6H PRN #12 tab 10/01/18 Unknown Rx /Codeine # 3 tab] predniSONE [Prednisone] 50 mg PO DAILY 5 Days #5 tablet 10/01/18 Unknown Rx Allergies Allergy/AdvReac Type Severity Reaction Status Date / Time No Known Allergies Allergy Verified 09/19/18 10:16 ED Dental HPI - General Chief complaint: Earache Stated complaint: EAR/NECK PAIN Time Seen by Provider: 10/01/18 03:49 Source: patient Mode of arrival: Ambulatory Limitations: No Limitations - Related Data Previous Rx's Medication Instructions Recorded Last Taken Type Acyclovir [Zovirax Cap] 400 mg PO Q8HR #30 capsule 09/15/18 Unknown Rx Aspirin [Aspirin TAB] 325 mg PO QDAY #30 tablet 09/15/18 Unknown Rx AtorvaSTATin [Lipitor] 40 mg PO QHS #30 tablet 09/15/18 Unknown Rx hydroCHLOROthiazide [HCTZ] 25 mg PO QDAY #30 tablet 09/16/18 Unknown Rx LORazepam [Ativan] 1 mg PO QHS #3 tab 09/17/18 Unknown Rx LORazepam [Ativan] 1 mg PO BID PRN #6 tab 09/19/18 Unknown Rx Valacyclovir HCl [Valtrex] 1,000 mg PO BID 10 Days #20 tab 09/22/18 Unknown Rx Dicyclomine [Bentyl] 10 mg PO QID PRN #30 capsule 09/28/18 Unknown Rx Naproxen 500 mg PO BID PRN #30 tablet 09/28/18 Unknown Rx Polyethylene Glycol 3350 [Miralax 17 gm PO BID PRN #14 packet 09/28/18 Unknown Rx 3350] Acetaminophen/Codeine [Tylenol 1 tab PO Q6H PRN #12 tab 10/01/18 Unknown Rx /Codeine # 3 tab] predniSONE [Prednisone] 50 mg PO DAILY 5 Days #5 tablet 10/01/18 Unknown Rx Allergies Allergy/AdvReac Type Severity Reaction Status Date / Time No Known Allergies Allergy Verified 09/19/18 10:16 ED Review of Systems ROS: Stated complaint: EAR/NECK PAIN Other details as noted in HPI Comment: All other systems reviewed and negative ED Past Medical Hx - Past Medical History Previous Medical History?: Yes Hx Congestive Heart Failure: No Hx Diabetes: No Hx Asthma: No Hx COPD: No Additional medical history: [place] Palsy - Surgical History Past Surgical History?: No - Social History Smoking Status: Former Smoker Substance Use Type: None - Medications Home Medications: Home Medications Medication Instructions Recorded Confirmed Last Taken Type Acyclovir [Zovirax Cap] 400 mg PO Q8HR #30 capsule 09/15/18 Unknown Rx Aspirin [Aspirin TAB] 325 mg PO QDAY #30 tablet 09/15/18 Unknown Rx AtorvaSTATin [Lipitor] 40 mg PO QHS #30 tablet 09/15/18 Unknown Rx hydroCHLOROthiazide [HCTZ] 25 mg PO QDAY #30 tablet 09/16/18 Unknown Rx LORazepam [Ativan] 1 mg PO QHS #3 tab 09/17/18 Unknown Rx LORazepam [Ativan] 1 mg PO BID PRN #6 tab 09/19/18 Unknown Rx Valacyclovir HCl [Valtrex] 1,000 mg PO BID 10 Days #20 tab 09/22/18 Unknown Rx Dicyclomine [Bentyl] 10 mg PO QID PRN #30 capsule 09/28/18 Unknown Rx Naproxen 500 mg PO BID PRN #30 tablet 09/28/18 Unknown Rx Polyethylene Glycol 3350 [Miralax 17 gm PO BID PRN #14 packet 09/28/18 Unknown Rx 3350] Acetaminophen/Codeine [Tylenol 1 tab PO Q6H PRN #12 tab 10/01/18 Unknown Rx /Codeine # 3 tab] predniSONE [Prednisone] 50 mg PO DAILY 5 Days #5 tablet 10/01/18 Unknown Rx ED Physical Exam - General Limitations: No Limitations General appearance: alert, in no apparent distress - Head Head exam: Present: atraumatic, normocephalic - Eye Eye exam: Present: normal appearance - ENT ENT exam: Present: mucous membranes moist, TM's normal bilaterally - Respiratory Respiratory exam: Present: normal lung sounds bilaterally. Absent: respiratory distress, wheezes, rales, stridor, chest wall tenderness, accessory muscle use, decreased breath sounds, prolonged expiratory - Cardiovascular Cardiovascular Exam: Present: regular rate, normal rhythm, normal heart sounds. Absent: systolic murmur, rubs, gallop - Neurological Exam Neurological exam: Present: alert, oriented X3, other (left sided facial droop, chronic ) - Psychiatric Psychiatric exam: Present: normal affect, normal mood - Skin Skin exam: Present: warm, dry, intact ED Course Vital Signs 09/30/18 10/01/18 22:13 03:22 Temperature 97.3 F L 97.9 F Pulse Rate 86 79 Respiratory 16 16 Rate Blood Pressure 142/87 182/99 O2 Sat by Pulse 100 98 Oximetry ED Medical Decision Making - Lab Data Vital Signs 09/30/18 10/01/18 22:13 03:22 Temperature 97.3 F L 97.9 F Pulse Rate 86 79 Respiratory 16 16 Rate Blood Pressure 142/87 182/99 O2 Sat by Pulse 100 98 Oximetry - Medical Decision Making Pt is a 58 yo male who presents to the ED with c/o tinnitus and left sided ear pain for the last month. He was diagnosed with [place] Palsy on september 13 and given steroids and anti-virals. The patient has not seen an ENT doctor. He states he did see a primary care doctor but did not discuss the ear pain. he denies any numbness, weakness, drainage, vision problems, speech difficulty, or fever. 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 The patie nt was also started on hctz this month for HTN. He states he last took it yesterday morning. Examination of the ear is normal. no new neuro sx. Will have pt follow up with ENT and his PCP in the next 2-3 days. Will give pt something for pain and steroids. Advised to discuss with his primary care doctor the elevation in his blood pressure for further management. On repeat of his bp in the ED it significantly improved without intervention. Critical care attestation.: If time is entered above; I have spent that time in minutes in the direct care of this critically ill patient, excluding procedure time. ED Disposition Clinical Impression: Left-sided Subramanian's palsy HTN (hypertension) Qualifiers: Hypertension type: unspecified Qualified Code(s): I10 - Essential (primary) hypertension Disposition: TO HOME OR SELFCARE Is pt being admited?: No Does the pt Need Aspirin: No Condition: Stable Instructions: Subramanian Palsy (ED), Hypertension (ED) Additional Instructions: Follow up with your primary care doctor in the next 2-3 days to discuss your elevated blood pressure and to adjust your medications. Follow up with Dr. Rangel for your ear pain and [place] Palsy. Take medication as prescribed. Return to the emergency room for any new or worsening symptoms. Prescriptions: predniSONE [Prednisone] 50 mg PO DAILY 5 Days #5 tablet Acetaminophen/Codeine [Tylenol /Codeine # 3 tab] 1 tab PO Q6H PRN #12 tab PRN Reason: pain Referrals: DAVID CORBIN MD [Primary Care Provider] - 2-3 Days AILYN RANGEL MD [Staff Physician] - 2-3 Days Forms: Accompanied Note, Work/School Release Form(ED) Time of Disposition: 04:10 Print Language: ESTONIAN
== END 2018-10-01 04:20 | disposition home or self-care (01) ==
LOC: ED 22:01
DX: G51.0 Bell's palsy (principal); I10 Essential (primary) hypertension; Z87.891 Personal history of nicotine dependence

== ENCOUNTER 2018-10-03 15:07 | Emergency (ER) | payer OTHER ==
[2018-10-03 15:38] VITALS: BP 136/63
--- NOTE | 2018-10-03 16:01 | Emergency Department Report ---
Blank Doc - Documentation Documentation: Patient came here for unstable bp. BP 167/101. Worried about. Has a PCP Dr. Americo kraus . reports had bells palsy and admitted x 2 nights. Bp started elevation when started on steroid. Stop steroid but still elevated sometimes. Dr Kraus started him on Water pill and wasnot working. Place on norvasc 10 mg po. CV- S1S2 RRR BP stable A/P HTN- stable anxiety about health pt medically screened by provider
--- NOTE | 2018-10-03 18:29 | Emergency Department Report ---
ED General Adult HPI - General Chief complaint: High BP Stated complaint: HYPERTENSION Time Seen by Provider: 10/03/18 15:55 Source: patient Mode of arrival: Ambulatory Limitations: No Limitations - History of Present Illness Initial comments: Patient is a 58-year-old -[place] gentleman who is here for the eighth visit this month. Patient was admitted for 2 days on October 03 to rule out stroke. Patient was diagnosed with L Subramanian's palsy. Since that time the patient has been having issues at home where he feels very anxious and he'll take his blood pressure being elevated and the patient will come to the emergency department. We were comes to the emergency department blood pressure normalizes. Patient is very worried about his blood pressure and he was taken off his hospital thiazide and placed on Norvasc by his primary care physician. Patient currently states he has no symptoms he is denying any chest pain shortness of breath cough cold congestion fevers chills or focal neurological deficit except for his right sided facial palsy. Patient was just switched to Norvasc this morning area patient states he felt as though the medicine was working up until about 2 PM in which time he states he felt very nervous and had some palpitations. Patient states these have resolved once he got to the emergency department. Severity scale (0 -10): 0 - Related Data Previous Rx's Medication Instructions Recorded Last Taken Type Acyclovir [Zovirax Cap] 400 mg PO Q8HR #30 capsule 09/15/18 Unknown Rx Aspirin [Aspirin TAB] 325 mg PO QDAY #30 tablet 09/15/18 Unknown Rx AtorvaSTATin [Lipitor] 40 mg PO QHS #30 tablet 09/15/18 Unknown Rx hydroCHLOROthiazide [HCTZ] 25 mg PO QDAY #30 tablet 09/16/18 Unknown Rx LORazepam [Ativan] 1 mg PO QHS #3 tab 09/17/18 Unknown Rx LORazepam [Ativan] 1 mg PO BID PRN #6 tab 09/19/18 Unknown Rx Valacyclovir HCl [Valtrex] 1,000 mg PO BID 10 Days #20 tab 09/22/18 Unknown Rx Dicyclomine [Bentyl] 10 mg PO QID PRN #30 capsule 09/28/18 Unknown Rx Naproxen 500 mg PO BID PRN #30 tablet 09/28/18 Unknown Rx Polyethylene Glycol 3350 [Miralax 17 gm PO BID PRN #14 packet 09/28/18 Unknown Rx 3350] Acetaminophen/Codeine [Tylenol 1 tab PO Q6H PRN #12 tab 10/01/18 Unknown Rx /Codeine # 3 tab] predniSONE [Prednisone] 50 mg PO DAILY 5 Days #5 tablet 10/01/18 Unknown Rx ALPRAZolam [Xanax TAB] 0.25 mg PO BID PRN #10 tab 10/03/18 Unknown Rx Allergies Allergy/AdvReac Type Severity Reaction Status Date / Time No Known Allergies Allergy Verified 09/19/18 10:16 ED Review of Systems ROS: Stated complaint: HYPERTENSION Other details as noted in HPI Comment: All other systems reviewed and negative ED Past Medical Hx - Past Medical History Previous Medical History?: Yes Hx Hypertension: Yes Hx Congestive Heart Failure: No Hx Diabetes: No Hx Asthma: No Hx COPD: No Additional medical history: [place] Palsy - Surgical History Past Surgical History?: No - Social History Smoking Status: Never Smoker Substance Use Type: None - Medications Home Medications: Home Medications Medication Instructions Recorded Confirmed Last Taken Type Acyclovir [Zovirax Cap] 400 mg PO Q8HR #30 capsule 09/15/18 Unknown Rx Aspirin [Aspirin TAB] 325 mg PO QDAY #30 tablet 09/15/18 Unknown Rx AtorvaSTATin [Lipitor] 40 mg PO QHS #30 tablet 09/15/18 Unknown Rx hydroCHLOROthiazide [HCTZ] 25 mg PO QDAY #30 tablet 09/16/18 Unknown Rx LORazepam [Ativan] 1 mg PO QHS #3 tab 09/17/18 Unknown Rx LORazepam [Ativan] 1 mg PO BID PRN #6 tab 09/19/18 Unknown Rx Valacyclovir HCl [Valtrex] 1,000 mg PO BID 10 Days #20 tab 09/22/18 Unknown Rx Dicyclomine [Bentyl] 10 mg PO QID PRN #30 capsule 09/28/18 Unknown Rx Naproxen 500 mg PO BID PRN #30 tablet 09/28/18 Unknown Rx Polyethylene Glycol 3350 [Miralax 17 gm PO BID PRN #14 packet 09/28/18 Unknown Rx 3350] Acetaminophen/Codeine [Tylenol 1 tab PO Q6H PRN #12 tab 10/01/18 Unknown Rx /Codeine # 3 tab] predniSONE [Prednisone] 50 mg PO DAILY 5 Days #5 tablet 03/28/19 Unknown Rx ALPRAZolam [Xanax TAB] 0.25 mg PO BID PRN #10 tab 10/03/18 Unknown Rx ED Physical Exam - General Limitations: No Limitations General appearance: alert, in no apparent distress - Head Head exam: Present: atraumatic, normocephalic - Eye Eye exam: Present: normal appearance - ENT ENT exam: Present: mucous membranes moist - Neck Neck exam: Present: normal inspection - Respiratory Respiratory exam: Present: normal lung sounds bilaterally. Absent: respiratory distress, wheezes, rales, rhonchi - Cardiovascular Cardiovascular Exam: Present: regular rate, normal rhythm. Absent: systolic murmur, diastolic murmur, rubs, gallop - GI/Abdominal GI/Abdominal exam: Present: soft, normal bowel sounds. Absent: distended, tenderness, guarding, rebound - Rectal Rectal exam: Present: deferred - Extremities Exam Extremities exam: Present: normal inspection - Back Exam Back exam: Present: normal inspection - Neurological Exam Neurological exam: Present: alert, oriented X3, other (L facial droop (partial)) - Psychiatric Psychiatric exam: Present: normal affect, normal mood - Skin Skin exam: Present: warm, dry, intact, normal color. Absent: rash ED Course Vital Signs 10/03/18 15:36 Temperature 97.9 F Pulse Rate 102 H Respiratory 20 Rate Blood Pressure 136/63 O2 Sat by Pulse 99 Oximetry ED Medical Decision Making - EKG Data -: EKG Interpreted by Me - EKG Data 10/03/18 18:27 EKG shows sinus rhythm a rate of 75 axis is normal intervals normal. Patient has Q waves in inferior leads. There is no ST segment elevation or depressions. There is no change in his EKG from 09/13/2018. - Medical Decision Making Patient's blood pressure at home was allegedly 170 systolic. Patient has a normal blood pressure here and he states he is asymptomatic. I have a long discussion with the patient regarding the possibility of anxiety causing his symptoms. The patient is a home he states he is worried that he is going to get ill and he starts having palpitations. When he gets to the hospital he feels safe and his blood pressure improves. Patient be started on low-dose Xanax patient to follow up with his primary care physician. He'll also given the patient information about the difference between hypertensive urgency and emergency. Patient understands that he is to come back to the emergency department if he has chest pain shortness of breath unexplained diaphoresis or focal neurological deficits other than his Subramanian's palsy. Critical care attestation.: If time is entered above; I have spent that time in minutes in the direct care of this critically ill patient, excluding procedure time. ED Disposition Clinical Impression: Anxiety Disposition: DC-01 TO HOME OR SELFCARE Is pt being admited?: No Does the pt Need Aspirin: No Condition: Stable Instructions: Anxiety (ED) Prescriptions: ALPRAZolam [Xanax TAB] 0.25 mg PO BID PRN #10 tab PRN Reason: Anxiety Referrals: RODRIGO SIU MD [Staff Physician] - 3-5 Days Time of Disposition: 18:30
== END 2018-10-03 16:00 | disposition home or self-care (01) ==
LOC: ED 15:07
DX: F41.9 Anxiety disorder, unspecified (principal); G51.0 Bell's palsy; I10 Essential (primary) hypertension
CPT/HCPCS: 93005; 93010

== ENCOUNTER 2018-10-03 23:33 | Emergency (ER) | payer OTHER ==
[2018-10-04] MEDS ORDERED: ASPIRIN PO ONE (00:12)
--- NOTE | 2018-10-04 00:51 | XRay Report ---
PROCEDURE: XR CHEST 1V AP TECHNIQUE: Chest radiograph single view. HISTORY: Chest Pain COMPARISONS: None . FINDINGS: Heart: Normal. Mediastinum/Vessels: Normal. Lungs/Pleural space: Normal. Bony thorax: No acute osseous abnormality. Life support devices: None. IMPRESSION: No acute cardiopulmonary abnormality. This document is electronically signed by Ame Zambrano DO., October 04 2018 12:49:41 AM ET
[2018-10-04 01:25] LABS: Basophils % (Auto) 0.5 % (0.0-1.8); Eosinophils # (Auto) 0.1 K/mm3 (0.0-0.4); Eosinophils % (Auto) 1.6 % (0.0-4.3); Hematocrit 44.3 % (35.5-45.6); Hemoglobin 15.2 gm/dl (11.8-15.2); Lymphocytes # (Auto) 2.7 K/mm3 (1.2-5.4); Lymphocytes % (Auto) 36.2 % (13.4-35.0); Mean Corpuscular HGB Conc 34 % (32-34); Mean Corpuscular Volume 93 fl (84-94); Monocytes # (Auto) 0.8 K/mm3 (0.0-0.8); Monocytes % (Auto) 10.4 % (0.0-7.3); Platelet Count 210 K/mm3 (140-440); Red Blood Count 4.75 M/mm3 (3.65-5.03)
[2018-10-04 01:38] LABS: BUN/Creatinine Ratio 9; Blood Urea Nitrogen 11 mg/dL (9-20); Calcium 8.8 mg/dL (8.4-10.2); Hemolysis Index 25
[2018-10-04 06:34] VITALS: BP 112/74
--- NOTE | 2018-10-04 06:39 | Emergency Department Report ---
ED General Adult HPI - General Chief complaint: Chest Pain Stated complaint: ELEVATED BP, WEAKNESS Time Seen by Provider: 10/04/18 06:08 Source: patient Mode of arrival: Ambulatory Limitations: No Limitations - History of Present Illness Initial comments: 58-year-old male with history of anxiety presents to ED with complaint of elevated blood pressure. Patient states he awoke from his sleep, felt anxious, so decided to take his blood pressure, which was 170s/100s. Patient states he was given a prescription for clonidine by his PCP in the event that his blood pressure spiked, so he took clonidine and then came to the emergency room. Patient currently comfortable, lying on stretcher asleep. States symptoms have resolved. Patient was seen for same earlier yesterday. Currently takes Ativan, but was given a prescription for Xanax in the ER, which they state the eye still waiting on from the pharmacy. Patient was spoken to at length by yesterday's ED provider regarding anxiety, hypertensive urgency versus emergency, yet patient still returned to the ED. Patient seen multiple times this month in the ED, had an admission and full workup for CVA earlier in the month, which turned out to be Subramanian's palsy. PCP: Dr Americo Siu -: Last night Severity scale (0 -10): 3 Consistency: now resolved Improves with: none Worsens with: none Associated Symptoms: weakness. denies: chest pain, nausea/vomiting, shortness of breath Treatments Prior to Arrival: other (clonidine) - Related Data Previous Rx's Medication Instructions Recorded Last Taken Type Acyclovir [Zovirax Cap] 400 mg PO Q8HR #30 capsule 09/15/18 Unknown Rx Aspirin [Aspirin TAB] 325 mg PO QDAY #30 tablet 09/15/18 Unknown Rx AtorvaSTATin [Lipitor] 40 mg PO QHS #30 tablet 09/15/18 Unknown Rx hydroCHLOROthiazide [HCTZ] 25 mg PO QDAY #30 tablet 09/16/18 Unknown Rx LORazepam [Ativan] 1 mg PO QHS #3 tab 09/17/18 Unknown Rx LORazepam [Ativan] 1 mg PO BID PRN #6 tab 09/19/18 Unknown Rx Valacyclovir HCl [Valtrex] 1,000 mg PO BID 10 Days #20 tab 09/22/18 Unknown Rx Dicyclomine [Bentyl] 10 mg PO QID PRN #30 capsule 09/28/18 Unknown Rx Naproxen 500 mg PO BID PRN #30 tablet 09/28/18 Unknown Rx Polyethylene Glycol 3350 [Miralax 17 gm PO BID PRN #14 packet 09/28/18 Unknown Rx 3350] Acetaminophen/Codeine [Tylenol 1 tab PO Q6H PRN #12 tab 10/01/18 Unknown Rx /Codeine # 3 tab] predniSONE [Prednisone] 50 mg PO DAILY 5 Days #5 tablet 10/01/18 Unknown Rx ALPRAZolam [Xanax TAB] 0.25 mg PO BID PRN #10 tab 10/03/18 Unknown Rx Allergies Allergy/AdvReac Type Severity Reaction Status Date / Time No Known Allergies Allergy Verified 09/19/18 10:16 ED Review of Systems ROS: Stated complaint: ELEVATED BP, WEAKNESS Other details as noted in HPI Comment: All other systems reviewed and negative Constitutional: weakness. denies: chills, fever Respiratory: denies: shortness of breath Cardiovascular: denies: chest pain Neurological: denies: headache Psychiatric: anxiety ED Past Medical Hx - Past Medical History Previous Medical History?: Yes Hx Hypertension: Yes Hx Congestive Heart Failure: No Hx Diabetes: No Hx Asthma: No Hx COPD: No Additional medical history: [place] Palsy - Surgical History Past Surgical History?: No - Social History Smoking Status: Never Smoker Substance Use Type: None - Medications Home Medications: Home Medications Medication Instructions Recorded Confirmed Last Taken Type Acyclovir [Zovirax Cap] 400 mg PO Q8HR #30 capsule 09/15/18 Unknown Rx Aspirin [Aspirin TAB] 325 mg PO QDAY #30 tablet 09/15/18 Unknown Rx AtorvaSTATin [Lipitor] 40 mg PO QHS #30 tablet 09/15/18 Unknown Rx hydroCHLOROthiazide [HCTZ] 25 mg PO QDAY #30 tablet 09/16/18 Unknown Rx LORazepam [Ativan] 1 mg PO QHS #3 tab 09/17/18 Unknown Rx LORazepam [Ativan] 1 mg PO BID PRN #6 tab 09/19/18 Unknown Rx Valacyclovir HCl [Valtrex] 1,000 mg PO BID 10 Days #20 tab 09/22/18 Unknown Rx Dicyclomine [Bentyl] 10 mg PO QID PRN #30 capsule 09/28/18 Unknown Rx Naproxen 500 mg PO BID PRN #30 tablet 03/25/19 Unknown Rx Polyethylene Glycol 3350 [Miralax 17 gm PO BID PRN #14 packet 09/28/18 Unknown Rx 3350] Acetaminophen/Codeine [Tylenol 1 tab PO Q6H PRN #12 tab 10/01/18 Unknown Rx /Codeine # 3 tab] predniSONE [Prednisone] 50 mg PO DAILY 5 Days #5 tablet 10/01/18 Unknown Rx ALPRAZolam [Xanax TAB] 0.25 mg PO BID PRN #10 tab 10/03/18 Unknown Rx ED Physical Exam - General Limitations: No Limitations General appearance: alert, in no apparent distress - Head Head exam: Present: atraumatic, normocephalic - Eye Eye exam: Present: normal appearance - ENT ENT exam: Present: mucous membranes moist - Neck Neck exam: Present: normal inspection - Respiratory Respiratory exam: Present: normal lung sounds bilaterally. Absent: respiratory distress - Cardiovascular Cardiovascular Exam: Present: regular rate, normal rhythm - GI/Abdominal GI/Abdominal exam: Present: soft. Absent: distended, tenderness - Extremities Exam Extremities exam: Present: normal inspection - Neurological Exam Neurological exam: Present: alert, oriented X3, other (facial droop noted) - Psychiatric Psychiatric exam: Present: normal affect, normal mood - Skin Skin exam: Present: warm, dry, intact, normal color. Absent: rash ED Course Vital Signs 10/03/18 10/04/18 10/04/18 23:37 06:32 06:34 Temperature 98.3 F 98.3 F Pulse Rate 98 H 70 Respiratory 18 15 15 Rate Blood Pressure 123/80 Blood Pressure 112/74 [Left] O2 Sat by Pulse 100 95 95 Oximetry ED Medical Decision Making - Lab Data Result diagrams: 10/04/18 00:47 10/04/18 00:47 - EKG Data -: EKG Interpreted by De EKG shows normal: sinus rhythm, axis, intervals, QRS complexes, ST-T waves Rate: normal - EKG Data Interpretation: no acute changes - Radiology Data Radiology results: report reviewed - Medical Decision Making - pt feeling much better at this time - BP currently normal - will d/c at this time - outpt f/u advised - Differential Diagnosis anxiety Critical care attestation.: If time is entered above; I have spent that time in minutes in the direct care of this critically ill patient, excluding procedure time. ED Disposition Clinical Impression: Anxiety Disposition: DC-01 TO HOME OR SELFCARE Is pt being admited?: No Condition: Stable Instructions: Anxiety (ED) Referrals: AMERICO SIU MD [Primary Care Provider[facility] Time of Disposition: 06:41
== END 2018-10-04 06:58 | disposition home or self-care (01) ==
LOC: ED 23:33
DX: F41.9 Anxiety disorder, unspecified (principal); I10 Essential (primary) hypertension; G51.0 Bell's palsy
CPT/HCPCS: 36415; 71045; 80048; 84484; 85025; 93005; 93010

== ENCOUNTER 2018-10-07 10:04 | Emergency (ER) | payer OTHER ==
--- NOTE | 2018-10-07 10:49 | Emergency Department Report ---
ED Anxiety HPI - General Chief Complaint: High BP Stated Complaint: HIGH BLOOD PRESSURE Time Seen by Provider: 10/07/18 10:43 Source: patient Mode of arrival: Ambulatory - History of Present Illness Initial Comments: This is a 58-year-old male nontoxic, well nourished in appearance, no acute signs of distress presents to the ED with c/o of high blood pressure at home. They stated that he gets intermittently high blood pressure when he feels anxious. Patient denies any headache, chest pain, shortness of breath, fever, chills, nausea, vomiting, numbness or tingling. Patient is asymptomatic and denies any complaints. Patient does have a primary care doctor that he sees and does take his medication as prescribed. Patient denies any drug allergies. No significant past medical history besides hypertension. Patient was seen on several occasions and has been prescribed Ativan which stated that he does take during anxiety. Denies any SI/HI. MD Complaint: anxiety -: Last night Place: home Previous History of Same: Yes Severity: mild Quality: intermittant Provoking factors: none known Improves With: nothing Worsens With: nothing Associated symptoms: denies other symptoms. denies: chest pain, shortness of breath, palpitations, diaphoresis, confusion, cough, fever/chills, headaches, anorexia, malaise, nausea/vomiting, rash, seizure, syncope, weakness - Related Data Home Medications: Previous Rx's Medication Instructions Recorded Last Taken Type Acyclovir [Zovirax Cap] 400 mg PO Q8HR #30 capsule 09/15/18 Unknown Rx Aspirin [Aspirin TAB] 325 mg PO QDAY #30 tablet 09/15/18 Unknown Rx AtorvaSTATin [Lipitor] 40 mg PO QHS #30 tablet 09/15/18 Unknown Rx hydroCHLOROthiazide [HCTZ] 25 mg PO QDAY #30 tablet 09/16/18 Unknown Rx LORazepam [Ativan] 1 mg PO QHS #3 tab 09/17/18 Unknown Rx LORazepam [Ativan] 1 mg PO BID PRN #6 tab 09/19/18 Unknown Rx Valacyclovir HCl [Valtrex] 1,000 mg PO BID 10 Days #20 tab 09/22/18 Unknown Rx Dicyclomine [Bentyl] 10 mg PO QID PRN #30 capsule 09/28/18 Unknown Rx Naproxen 500 mg PO BID PRN #30 tablet 09/28/18 Unknown Rx Polyethylene Glycol 3350 [Miralax 17 gm PO BID PRN #14 packet 09/28/18 Unknown Rx 3350] Acetaminophen/Codeine [Tylenol 1 tab PO Q6H PRN #12 tab 10/01/18 Unknown Rx /Codeine # 3 tab] predniSONE [Prednisone] 50 mg PO DAILY 5 Days #5 tablet 10/01/18 Unknown Rx ALPRAZolam [Xanax TAB] 0.25 mg PO BID PRN #10 tab 10/03/18 Unknown Rx Allergies/Adverse Reactions: Allergies Allergy/AdvReac Type Severity Reaction Status Date / Time No Known Allergies Allergy Verified 09/19/18 10:16 ED Review of Systems ROS: Stated complaint: HIGH BLOOD PRESSURE Other details as noted in HPI Constitutional: denies: chills, fever Eyes: denies: eye pain, eye discharge, vision change ENT: denies: ear pain, throat pain Respiratory: denies: cough, shortness of breath, wheezing Cardiovascular: denies: chest pain, palpitations Endocrine: no symptoms reported Gastrointestinal: denies: abdominal pain, nausea, diarrhea Genitourinary: denies: urgency, dysuria Musculoskeletal: denies: back pain, joint swelling, arthralgia Skin: denies: rash, lesions Neurological: denies: headache, weakness, paresthesias Psychiatric: denies: anxiety, depression Hematological/Lymphatic: denies: easy bleeding, easy bruising ED Past Medical Hx - Past Medical History Hx Hypertension: Yes Hx Congestive Heart Failure: No Hx Diabetes: No Hx Asthma: No Hx COPD: No Additional medical history: [place] Palsy - Social History Smoking Status: Never Smoker Substance Use Type: None - Medications Home Medications: Home Medications Medication Instructions Recorded Confirmed Last Taken Type Acyclovir [Zovirax Cap] 400 mg PO Q8HR #30 capsule 09/15/18 Unknown Rx Aspirin [Aspirin TAB] 325 mg PO QDAY #30 tablet 09/15/18 Unknown Rx AtorvaSTATin [Lipitor] 40 mg PO QHS #30 tablet 09/15/18 Unknown Rx hydroCHLOROthiazide [HCTZ] 25 mg PO QDAY #30 tablet 09/16/18 Unknown Rx LORazepam [Ativan] 1 mg PO QHS #3 tab 09/17/18 Unknown Rx LORazepam [Ativan] 1 mg PO BID PRN #6 tab 09/19/18 Unknown Rx Valacyclovir HCl [Valtrex] 1,000 mg PO BID 10 Days #20 tab 09/22/18 Unknown Rx Dicyclomine [Bentyl] 10 mg PO QID PRN #30 capsule 09/28/18 Unknown Rx Naproxen 500 mg PO BID PRN #30 tablet 09/28/18 Unknown Rx Polyethylene Glycol 3350 [Miralax 17 gm PO BID PRN #14 packet 09/28/18 Unknown Rx 3350] Acetaminophen/Codeine [Tylenol 1 tab PO Q6H PRN #12 tab 10/01/18 Unknown Rx /Codeine # 3 tab] predniSONE [Prednisone] 50 mg PO DAILY 5 Days #5 tablet 10/01/18 Unknown Rx ALPRAZolam [Xanax TAB] 0.25 mg PO BID PRN #10 tab 10/03/18 Unknown Rx ED Physical Exam - General Limitations: No Limitations General appearance: alert, in no apparent distress - Head Head exam: Present: atraumatic, normocephalic - Eye Eye exam: Present: normal appearance - Neck Neck exam: Present: normal inspection, full ROM. Absent: tenderness, meningismus, lymphadenopathy - Respiratory Respiratory exam: Present: normal lung sounds bilaterally. Absent: respiratory distress, wheezes, rales, rhonchi, stridor, chest wall tenderness, accessory muscle use, decreased breath sounds, prolonged expiratory - Cardiovascular Cardiovascular Exam: Present: regular rate, normal rhythm, normal heart sounds. Absent: systolic murmur, diastolic murmur, rubs, gallop - Rectal Rectal exam: Present: deferred - Extremities Exam Extremities exam: Present: normal inspection, full ROM - Back Exam Back exam: Present: normal inspection, full ROM - Neurological Exam Neurological exam: Present: alert, oriented X3 - Psychiatric Psychiatric exam: Present: normal affect, normal mood - Skin Skin exam: Present: warm, dry, intact, normal color. Absent: rash ED Course Vital Signs 10/07/18 10:19 Temperature 97.4 F L Pulse Rate 91 H Respiratory 16 Rate Blood Pressure 138/77 [Right] O2 Sat by Pulse 98 Oximetry - Reevaluation(s) Reevaluation #1: 10/07/18 10:47 Patient is speaking in full sentences with no signs of distress noted. ED Medical Decision Making - Medical Decision Making This is a 58-year-old male that presents with anxiety and hypertension. Patient is stable and was examined by me. Currently the patient's blood pressure is within normal limits of 138/77. Patient is asymptomatic. I do believe that his high blood pressure intermittently is related to his anxiety. I did educate the patient on a low-sodium diet as well as anxiety control methods. Patient was referred to Follow-up with a primary care doctor in 3-5 days or if symptoms worsen and continue return to emergency room as soon as possible. At time of discharge, the patient does not seem toxic or ill in appearance. No acute signs of distress noted. Patient agrees to discharge treatment plan of care. No further questions noted by the patient. Critical care attestation.: If time is entered above; I have spent that time in minutes in the direct care of this critically ill patient, excluding procedure time. ED Disposition Clinical Impression: Anxiety HTN (hypertension) Qualifiers: Hypertension type: unspecified Qualified Code(s): I10 - Essential (primary) hypertension Disposition: - TO HOME OR SELFCARE Is pt being admited?: No Does the pt Need Aspirin: No Condition: Stable Instructions: Hypertension (ED), Anxiety (ED), Low Sodium Diet (ED) Additional Instructions: Follow-up with a primary care doctor in 3-5 days or if symptoms worsen and continue return to emergency room as soon as possible. Referrals: KELECHI WU MD [Primary Care Provider] - 3-5 Days PRIMARY MD ELISEO [Referring] - 3-5 Days BECKA LAZARO MD [Staff Physician] - 3-5 Days [facility] [Outside] - 3-5 Days [facility] [Outside] - 3-5 Days RAFAEL OLIVARES MD [Staff Physician] - 3-5 Days Forms: Work/School Release Form(ED)
[2018-10-07 11:01] VITALS: BP 134/72
== END 2018-10-07 11:00 | disposition home or self-care (01) ==
LOC: ED 10:04
DX: I10 Essential (primary) hypertension (principal); F41.9 Anxiety disorder, unspecified; Z79.82 Long term (current) use of aspirin
CPT/HCPCS: 99282